=== PATIENT | female | born 1940 | race Caucasian/White ===

== ENCOUNTER 2016-11-28 00:17 | Inpatient (IN) | payer MEDICARE ==
[~2016-11-28] VITALS: Ht 157.5 cm; Wt 90.7 kg
[2016-11-28 00:59] LABS: BILIRUBIN,URINE NEGATIVE (NEG); GLUCOSE,URINE NEGATIVE (NEG); NITRITE,URINE NEGATIVE (NEG); PROTEIN,URINE NEGATIVE (NEG-TRACE); UROBILINOGEN,URINE 0.2 mg/dL (0.2 mg/dL)
[2016-11-28] MEDS ORDERED: ONDANSETRON PF 4 MG/2 ML VIAL. IV ONE (01:00)
[2016-11-28] MEDS ORDERED: FENTANYL PF 100 MCG/2 ML VIAL. IV PRN (01:00)
[2016-11-28] MEDS ORDERED: IV NORMAL SALINE 1000ML BAG 1,000 ML IV SCH (01:00)
[2016-11-28 01:02] LABS: BASO % 0 % (0-3); EOS % 0 % (0-3); HEMATOCRIT 44.1 % (36.0-47.0); HEMOGLOBIN 14.2 g/dL (12.0-15.5); LYMPH # 0.5 x10^3/uL (1.0-4.8); LYMPH % 4 % (24-48); MEAN CORPUSCULAR HEMOGLOBIN 30 pg (25-35); MEAN CORPUSCULAR HGB CONC 32 g/dL (31-37); MEAN CORPUSCULAR VOLUME 91 fL (79-100); MONO % 4 % (0-9); NEUT % 91 % (31-73); PLATELET COUNT 106 x10^3/uL (140-400); RED BLOOD COUNT 4.83 x10^6/uL (3.50-5.40); RED CELL DISTRIBUTION WIDTH 14.5 % (11.5-14.5); WHITE BLOOD COUNT 11.8 x10^3/uL (4.0-11.0)
--- NOTE | 2016-11-28 01:06 | ED.ADGEN ---
Past Medical History Past Medical History: CAD, Other Additional Past Medical Histor: ventricular premature stenosis, polio age 4 Past Surgical History: Other Additional Past Surgical Histo: 2 heart stents Alcohol Use: Rarely Drug Use: None Adult General Chief Complaint Chief Complaint: NAUSEA/VOMITING/DIARRHA HPI HPI Patient is a 76 year old woman, history of CAD, who presents to the emergency department with complaint of sudden onset of nausea, vomiting, diarrhea, and abdominal distention that began around 7:00 last night. Patient states she ate a small amount of casserole around 6 PM, denies any sick contacts or exposures, states that her states that he had "maybe a little bit of an upset stomach" after eating the same casserole, but has not experienced any vomiting or diarrhea. She denies any significant abdominal pain, complains of more distention, and pain with pressure on the abdomen. Denies any similar symptoms previously. No fevers or chills, no flank pain, no injuries, no urinary complaints. States that her stool began as loose and brown, and that she now is experiencing almost liquid stools, and that "my hemorrhoids have been irritated ", with a small amount of red blood. No dark stools, no blood in emesis. Patient has a history of colon cancer and her family, and receives endoscopy every 3 years, she is due for an ostomy this year, has not had any abnormalities noted with previous endoscopies. Review of Systems Review of Systems Constitutional: Denies fever or chills. [] Eyes: Denies change in visual acuity. [] HENT: Denies nasal congestion or sore throat. [] Respiratory: Denies cough or shortness of breath. [] Cardiovascular: Denies chest pain or edema. [] GI: Nausea, vomiting, diarrhea, abdominal distention. : Denies dysuria. [] Musculoskeletal: Denies back pain or joint pain. [] Integument: Denies rash. [] Neurologic: Denies headache, focal weakness or sensory changes. [] Endocrine: Denies polyuria or polydipsia. [] Lymphatic: Denies swollen glands. [] Psychiatric: Denies depression or anxiety. [] Current Medications Current Medications Current Medications Medications (Trade) Dose Ordered Sig/Lori Start Time Stop Time Status Last Admin Dose Admin Fentanyl Citrate 25 mcg 25 mcg PRN Q15MIN PRN 11/28/16 01:00 11/29/16 00:59 Info (Do NOT chart on this entry -- for MONITORING) 1 each PRN DAILY PRN 11/28/16 01:30 11/30/16 01:29 Iohexol (Omnipaque 300 Mg/ml) 75 ml 1X ONCE 11/28/16 01:30 11/28/16 01:31 DC 11/28/16 02:25 75 ML Ondansetron HCl (Zofran) 4 mg 1X ONCE 11/28/16 01:00 11/28/16 01:01 DC 11/28/16 01:00 4 MG Sodium Chloride (Iv Sodium Chloride 0.9% 1000ml Bag) 1,000 ml @ 1,000 mls/hr Q1H 11/28/16 01:00 11/28/16 01:59 DC 11/28/16 00:58 1,000 MLS/HR Allergies Allergies Allergies Coded Allergies Type Severity Reaction Last Updated Verified Sulfa (Sulfonamide Antibiotics) Allergy Unknown 11/28/16 Yes fexofenadine Allergy Unknown anxiety 11/28/16 Yes Uncoded Allergies Type Severity Reaction Last Updated Verified SULFA DRUGS Allergy Unknown rash 11/28/16 TRICYCLIC Allergy Unknown anxiety 11/28/16 Physical Exam Physical Exam Constitutional: Well developed, well nourished, no acute distress, non-toxic appearance. [] HENT: Normocephalic, atraumatic, bilateral external ears normal, oropharynx moist, no oral exudates, nose normal. [] Eyes: PERRLA, EOMI, conjunctiva normal, no discharge. [] Neck: Normal range of motion, no tenderness, supple, no stridor. [] Cardiovascular:Heart rate regular rhythm, no murmur, S1, S2, rubs or gallops. [] Lungs & Thorax: Bilateral breath sounds clear to auscultation, no wheezing, rhonchi, rales. No chest wall tenderness or crepitus. [] Abdomen: Bowel sounds diminished, soft, distended, patient with tenderness to palpation throughout the abdomen, no tympany, positive for mild voluntary guarding, no rebound or rigidity. [] Skin: Warm, dry, no erythema, no rash. [] Back: No tenderness, no CVA tenderness. [] Extremities: No tenderness, no cyanosis, no clubbing, ROM intact, no edema. [] Neurologic: Alert and oriented X 3, normal motor function, normal sensory function, no focal deficits noted. [] Psychologic: Affect normal, judgement normal, mood normal. [] Current Patient Data Vital Signs Vital Signs Date Time Temp Pulse Resp B/P Pulse Ox O2 Delivery O2 Flow Rate FiO2 11/28/16 00:27 98.3 84 20 162/75 98 Room Air 98.3 Lab Values Laboratory Tests Test 11/28/16 00:27 11/28/16 00:49 11/28/16 01:30 White Blood Count 11.8x10^3/uL (4.0-11.0) H Red Blood Count 4.83x10^6/uL (3.50-5.40) Hemoglobin 14.2g/dL (12.0-15.5) Hematocrit 44.1% (36.0-47.0) Mean Corpuscular Volume 91fL (79-100) Mean Corpuscular Hemoglobin 30pg (25-35) Mean Corpuscular Hemoglobin Concent 32g/dL (31-37) Red Cell Distribution Width 14.5% (11.5-14.5) Platelet Count 106x10^3/uL (140-400) L Neutrophils (%) (Auto) 91% (31-73) H Lymphocytes (%) (Auto) 4% (24-48) L Monocytes (%) (Auto) 4% (0-9) Eosinophils (%) (Auto) 0% (0-3) Basophils (%) (Auto) 0% (0-3) Neutrophils # (Auto) 10.8x10^3uL (1.8-7.7) H Lymphocytes # (Auto) 0.5x10^3/uL (1.0-4.8) L Monocytes # (Auto) 0.5x10^3/uL (0.0-1.1) Eosinophils # (Auto) 0.0x10^3/uL (0.0-0.7) Basophils # (Auto) 0.0x10^3/uL (0.0-0.2) Platelet Estimate Pending Sodium Level 143mmol/L (136-145) Potassium Level 4.4mmol/L (3.5-5.1) Chloride Level 105mmol/L (98-107) Carbon Dioxide Level 27mmol/L (21-32) Anion Gap 11 (6-14) Blood Urea Nitrogen 30mg/dL (7-20) H Creatinine 0.8mg/dL (0.6-1.0) Estimated GFR (Cockcroft-Gault) 69.7 BUN/Creatinine Ratio 38 (6-20) H Glucose Level 141mg/dL (70-99) H Calcium Level 9.6mg/dL (8.5-10.1) Total Bilirubin 0.5mg/dL (0.2-1.0) Aspartate Amino Transferase (AST) 29U/L (15-37) Alanine Aminotransferase (ALT) 21U/L (14-59) Alkaline Phosphatase 81U/L (46-116) Total Protein 6.7g/dL (6.4-8.2) Albumin 3.9g/dL (3.4-5.0) Albumin/Globulin Ratio 1.4 (1.0-1.7) Lipase 118U/L (73-393) Urine Collection Type Unknown Urine Color Yellow Urine Clarity Clear Urine pH 6.0 Urine Specific [place] 1.020 Urine Protein Negativemg/dL (NEG-TRACE) Urine Glucose (UA) Negativemg/dL (NEG) Urine Ketones (Stick) 15mg/dL (NEG) Urine Blood Negative (NEG) Urine Nitrite Negative (NEG) Urine Bilirubin Negative (NEG) Urine Urobilinogen Dipstick 0.2mg/dL (0.2 mg/dL) Urine Leukocyte Esterase Small (NEG) Urine RBC Occ/HPF (0-2) Urine WBC 5-10/HPF (0-4) Urine Squamous Epithelial Cells Mod/LPF Urine Bacteria 0/HPF (0-FEW) Urine Mucus Mod/LPF Influenza Type A Antigen Negative (NEGATIVE) Influenza Type B Antigen Negative (NEGATIVE) Laboratory Tests 11/28/16 00:27 Laboratory Tests 11/28/16 00:27 EKG EKG EC: Sinus rhythm, heart rate 82 bpm, left axis deviation, QTC of 431, ID of 158, QRS of 84, no ST elevations or depressions, mild baseline artifact noted , abnormal ECG, does not meet STEMI criteria. As interpreted by me. Radiology/Procedures Radiology/Procedures [] [facility] [address] [place] [address] IMAGING REPORT Signed PATIENT: IRMA MEDINA ACCOUNT: [id number] : 1940 LOCATION: ER AGE: 76 SEX: F EXAM STATUS: REG ER ORD. PHYSICIAN: MISAEL WILDER DO REASON: Abd pain/n/v/d PROCEDURE: ABD PELV W/ IV CONTRAST ONLY Examination: CT of the abdomen pelvis with IV contrast HISTORY History of nausea Vomiting, abdominal pain COMPARISON None available. TECHNIQUE Axial CT images of the abdomen is performed with IV contrast. Coronal sagittal reformats were performed. Exposure: One or more of the following dose reduction technique were utilized for this examination: 1. Automated exposure control. 2.Adjustment of MA and /or KV according to patient size. 3. Use of iterative reconstruction technique. Findings : Minimal bibasilar lung atelectasis. There is a small 4 millimeter pulmonary nodule identified in the left lower lobe of the lung. No evidence of free air identified in the abdomen. Multiple cysts identified in the liver with the largest measuring 4.7 centimeters in the right lobe likely cysts. The gallbladder is mildly distended. The visualized spleen, adrenals grossly appears unremarkable . The visualized pancreas grossly appears unremarkable . The stomach is mildly distended with fluid. There are multiple fluid distended/dilated small bowel loops identified in the in the proximal and mid small bowel region with collapsed small bowel loops identified in the right lower quadrant of the abdomen. A obvious transition point is difficult to visualize on this examination. Small amount of fluid identified in the colon throughout. Multiple colonic diverticula identified in the sigmoid colon region. The urinary bladder is moderately distended . The bilateral kidneys enhance symmetrically. Prominent appearing bilateral renal pelvis. Moderate aortic atherosclerosis. Moderate degenerative changes and in the visualized thoracolumbar spine. Coronary artery calcifications identified. Small fat and omentum containing umbilical hernia. The appendix is not clearly identified. IMPRESSION 1. Multiple dilated small bowel loops identified in the proximal and midportion with collapsed small bowel loops identified in the right lower quadrant of the abdomen, differential includes small bowel obstruction or ileus. 2. Multiple liver cysts. 3. Multiple colonic diverticula. Electronically signed by: Kodi Doyle (Nov 28, 2016 02:42:31) DICTATED and SIGNED BY: KODI DOYLE MD DATE: 11/28/16 0242 CC: MULUGETA FUNEZ; MISAEL WILDER DO ~ Course & Med Decision Making Course & Med Decision Making Pertinent Labs and Imaging studies reviewed. (See chart for details) Patient with recurrent nausea and vomiting, abdominal distention noted, with absence of bowel sounds. Concern for ileus versus small bowel obstruction and examination, patient is agreeable to receiving a CT of the abdomen and pelvis to further elucidate her symptoms. Laboratory studies revealed mild leukocytosis at 11.8, with no bandemia, elevated blood urea nitrogen at 30, and ketones at 15 in the urine, consistent with mild dehydration. CT abdomen and pelvis reveals evidence of dilated small bowel loops, with collapse further long , concerning again for ileus versus small bowel obstruction no transition point identified. Patient has had no further vomiting since administration of Zofran, states that her pain is well-controlled at this time. She is agreeable for admission to the hospital for nothing by mouth status, bowel rest, IV fluids, and evaluation by general surgery. Without any vomiting or nausea at this time, we'll hold off on placing NG tube. Findings as above discussed with Dr. Saez of internal medicine, bridge orders entered on her behalf for morning laboratory studies, consultation with Dr. Cerna of Gen. surgery, IV fluids and pain and antiemetics medications. Patient resting comfortably at time of transfer to the floor. Dragon Disclaimer Dragon Disclaimer This electronic medical record was generated, in whole or in part, using a voice recognition dictation system. Departure Impression: Primary Impression: Ileus Additional Impression: SBO (small bowel obstruction) Disposition: ADMITTED INPATIENT Admitting Physician: Aurora Saez Condition: IMPROVED Problem Qualifiers MISAEL WILDER DO Nov 28, 2016 01:06
[2016-11-28 01:09] LABS: BACTERIA,URINE 0 /HPF (0-FEW); RBC,URINE OCC /HPF (0-2); SQUAMOUS EPITHELIAL CELL,UR MOD /LPF
[2016-11-28 01:20] LABS: CALCIUM 9.6 mg/dL (8.5-10.1); CREATININE 0.8 mg/dL (0.6-1.0); GFR 69.7; POTASSIUM 4.4 mmol/L (3.5-5.1)
[2016-11-28 01:27] LABS: ALBUMIN 3.9 g/dL (3.4-5.0); ALBUMIN/GLOBULIN RATIO 1.4 (1.0-1.7); TOTAL BILIRUBIN 0.5 mg/dL (0.2-1.0); TOTAL PROTEIN 6.7 g/dL (6.4-8.2)
[2016-11-28] MEDS ORDERED: CONTRAST GIVEN MC PRN (01:30)
[2016-11-28] MEDS ORDERED: IOHEXOL 300 MG/ML 75 ML VIAL IV ONE (01:30)
[2016-11-28 01:57] LABS: OBC FLU VALID
--- NOTE | 2016-11-28 02:44 | RAD ---
Examination: CT of the abdomen pelvis with IV contrast HISTORY History of nausea Vomiting, abdominal pain COMPARISON None available. TECHNIQUE Axial CT images of the abdomen is performed with IV contrast. Coronal sagittal reformats were performed. Exposure: One or more of the following dose reduction technique were utilized for this examination: 1. Automated exposure control. 2.Adjustment of MA and /or KV according to patient size. 3. Use of iterative reconstruction technique. Findings : Minimal bibasilar lung atelectasis. There is a small 4 millimeter pulmonary nodule identified in the left lower lobe of the lung. No evidence of free air identified in the abdomen. Multiple cysts identified in the liver with the largest measuring 4.7 centimeters in the right lobe likely cysts. The gallbladder is mildly distended. The visualized spleen, adrenals grossly appears unremarkable . The visualized pancreas grossly appears unremarkable . The stomach is mildly distended with fluid. There are multiple fluid distended/dilated small bowel loops identified in the in the proximal and mid small bowel region with collapsed small bowel loops identified in the right lower quadrant of the abdomen. A obvious transition point is difficult to visualize on this examination. Small amount of fluid identified in the colon throughout. Multiple colonic diverticula identified in the sigmoid colon region. The urinary bladder is moderately distended . The bilateral kidneys enhance symmetrically. Prominent appearing bilateral renal pelvis. Moderate aortic atherosclerosis. Moderate degenerative changes and in the visualized thoracolumbar spine. Coronary artery calcifications identified. Small fat and omentum containing umbilical hernia. The appendix is not clearly identified. IMPRESSION 1. Multiple dilated small bowel loops identified in the proximal and midportion with collapsed small bowel loops identified in the right lower quadrant of the abdomen, differential includes small bowel obstruction or ileus. 2. Multiple liver cysts. 3. Multiple colonic diverticula. Electronically signed by: Kodi Doyle (Nov 28, 2016 02:42:31)
[2016-11-28] MEDS ORDERED: MORPHINE SULFATE 4 MG/ML DISP.SYRIN. IV PRN (03:15)
[2016-11-28 04:00] VITALS: BP 134/76
[2016-11-28] MEDS ORDERED: traZODone 50 MG TABLET. PO ONE (04:45)
[2016-11-28] MEDS: IV NORMAL SALINE 1000ML BAG 1,000 ML IV SCH ×2 (04:57→21:30)
[2016-11-28 05:24] LABS: TOXIC VACUOLATION SLIGHT
[2016-11-28 05:25] LABS: PLT ESTIMATE DECREASED (ADEQUATE)
--- NOTE | 2016-11-28 06:35 | EKG ---
[facility] [address] [place] [address] Test Date: 2016-11-28 Test Time: 00:55:54 Pat Name: IRMA MEDINA Department: Room: 438 1 Gender: F [employer] Builder: : 1940 Requested By: MISAEL WILDER Order Number: [id number] Reading MD: Alton Lagos Measurements Intervals [place] Rate: 82 P: 32 UT: 158 QRS: -18 QRSD: 84 T: 31 QT: 366 QTc: 431 Interpretive Statements SINUS RHYTHM LEFT ATRIAL ABNORMALITY LEFTWARD AXIS R-S TRANSITION ZONE IN V LEADS DISPLACED TO THE RIGHT Electronically Signed On 11-28-2016 14:56:12 SCISSORS GRINDER by Alton Lagos
[2016-11-28 07:15] VITALS: BP 125/66
[2016-11-28] MEDS ORDERED: AMLO2.5T2 PO (07:33)
[2016-11-28] MEDS ORDERED: ASPI-482 PO (07:33)
[2016-11-28] MEDS ORDERED: BISO5TAB2 PO (07:33)
[2016-11-28] MEDS ORDERED: estradiol VAG (07:33)
[2016-11-28] MEDS ORDERED: ACET500T68 PO (07:33)
[2016-11-28] MEDS ORDERED: CHOL10002 PO (07:33)
[2016-11-28] MEDS ORDERED: CRESTOR10 MG PO (07:33)
[2016-11-28] MEDS ORDERED: MULT-658 PO (07:33)
[2016-11-28] MEDS ORDERED: TRAZ100T12 PO (07:33)
[2016-11-28] MEDS ORDERED: HYDR-965 PO (07:33)
[2016-11-28] MEDS ORDERED: DIAZ5TAB PO (07:33)
--- NOTE | 2016-11-28 08:12 | PDOC1 ---
History and Physical Date of Admission Date of Admission DATE: 11/28/16 TIME: 08:05 Identification/Chief Complaint Chief Complaint diarrhea, vomiting Source Source: Chart review, Patient History of Present Illness History of Present Illness 76 y/o female admitted for acute onset of vomiting, diarrhea, maybe some abd cramps after eating dinner last night 7 pm, Denies recent travel or sick contacts, ate a casserole and 1 family member also had some diarrhea. 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 She gets cscope q3 yrs from GI at [place], hence known to have diverticulosis, Claims low grade temp last night 99.8 WBC 11, CT scan shows sbo partial vs ileus,Pt ahs never ahd prior similar episodes. Abd sx include hsyterrectomy distant past, rectocoele sx Pt has no pain now, no vomiting since arrival and actually requested for her trazadone pill last night and tolerated it fine. Eager to go home soon Aversed by the though of food currently Past Medical History Cardiovascular: HTN, Hyperlipidemia Psych: Other (insomnia) Past Surgical History Past Surgical History: Hysterectomy Family History Family History: No Significant Social History Smoke: No ALCOHOL: none Drugs: None Current Problem List Problem List Problems Medical Problems: (1) Ileus Status: Acute (2) SBO (small bowel obstruction) Status: Acute Problems: Current Medications Current Medications Current Medications Fentanyl Citrate 25 mcg 25 mcg PRN Q15MIN PRN IV PAIN GREATER THAN 3/10; Start 11/28/16 at 01:00; Stop 11/29/16 at 00:59 Sodium Chloride (Iv Sodium Chloride 0.9% 1000ml Bag) 1,000 ml @ 1,000 mls/hr Q1H IV Last administered on 11/28/16 00:58; Start 11/28/16 at 01:00; Stop at 01:59; Status DC Ondansetron HCl (Zofran) 4 mg 1X ONCE IV Last administered on 11/28/16 01:00 ; Start 11/28/16 at 01:00; Stop 11/28/16 at 01:01; Status DC Iohexol (Omnipaque 300 Mg/ml) 75 ml 1X ONCE IV Last administered on 11/28/16 02:25; Start 11/28/16 at 01:30; Stop 11/28/16 at 01:31; Status DC Info (Do NOT chart on this entry -- for MONITORING) 1 each PRN DAILY PRN MC SEE COMMENTS; Start 11/28/16 at 01:30; Stop 11/30/16 at 01:29 Ondansetron HCl (Zofran) 4 mg PRN Q8HRS PRN IV NAUSEA/VOMITING; Start 11/28/16 at 03:15; Stop 11/29/16 at 03:14 Morphine Sulfate 4 mg 4 mg PRN Q2HR PRN IV PAIN; Start 11/28/16 at 03:15; Stop 11/29/16 at 03:14 Sodium Chloride (Iv Sodium Chloride 0.9% 1000ml Bag) 1,000 ml @ 125 mls/hr Q8H IV Last administered on 11/28/16 04:57; Start 11/28/16 at 03:15; Stop at 03:14 Acetaminophen (Tylenol) 650 mg PRN Q4HRS PRN PO FEVER; Start 11/28/16 at 03:15 ; Stop 11/29/16 at 03:14 Trazodone HCl (Desyrel) 50 mg 1X ONCE PO Last administered on 11/28/16 04:50 ; Start 11/28/16 at 04:45; Stop 11/28/16 at 04:46; Status DC Active Scripts Active Reported Vitamin D (Cholecalciferol (Vitamin D3)) 1,000 Unit Tablet 1,000 Unit PO DAILY Valium (Diazepam) 5 Mg Tablet 5-10 Mg PO HS Acetaminophen 500 Mg Tablet 1 Tab PO Q6HRS Trazodone Hcl 100 Mg Tablet 1 Tab PO QHS Norvasc (Amlodipine Besylate) 2.5 Mg Tablet 1 Tab PO DAILY [place] 7.5-325 Tablet (Acetaminophen/Hydrocodone Bitart) 1 Each Tablet 1 Tab PO PRN Q6HRS PRN [estradiol] 1 Gm VAG WEEKLY PRN Crestor (Rosuvastatin Calcium) 10 Mg Tablet 1 Tab PO HS Centrum Silver Tablet (Multivits-Min/Fa/Lycopene/Lut) 1 Each Tablet 1 Each PO DAILY Bisoprolol Fumarate 5 Mg Tablet 1 Tab PO DAILY Aspir 81 (Aspirin) 81 Mg Tablet.dr 1 Tab PO DAILY Allergies Allergies: Coded Allergies: Sulfa (Sulfonamide Antibiotics) (Verified Allergy, Unknown, 11/28/16) fexofenadine (Verified Allergy, Unknown, anxiety, 11/28/16) Uncoded Allergies: SULFA DRUGS (Allergy, Unknown, rash, 11/28/16) TRICYCLIC (Allergy, Unknown, anxiety, 11/28/16) ROS General: No: Appetite, Chills, Fatigue, Malaise, Night Sweats, Other (fevers) PSYCHOLOGICAL ROS: No: Anxiety, Behavioral Disorder, Concentration difficultie , Decreased libido, Depression, Disorientation, Hallucinations, Hostility, Irritablity, Memory difficulties, Mood Swings, Obsessive thoughts, Other, Physical abuse, Sexual abuse, Sleep disturbances, Suicidal ideation Eyes: No Blurry vision, No Decreased vision, No Double vision, No Dry eyes, No Excessive tearing, No Eye Pain, No Itchy Eyes, No Loss of vision, No Other, No Photophobia, No Scotomata, No Uses contacts, No Uses glasses ALLERGY AND IMMUNOLOGY: No: Hives, Insect Bite Sensitivity, Itchy/Watery Eyes, Nasal Congestion, Other, Post Nasal Drip, Seasonal Allergies Breast: No New/Changing Breast Lumps, No Nipple changes, No Nipple discharge, No Other Respiratory: No: Cough, Hemoptysis, Orthopnea, Other, Pleuritic Pain, SOB with excertion, Shortness of breath, Sputum Changes, Stridor, Tachypnea, Wheezing Cardiovascular: No Chest Pain, No Edema, No Lt Headedness, No Orthopnea, No Other, No Palpitations, No Paroxysmal Noc. Dyspnea Gastrointestinal: Yes Abdominal Pain, Yes Diarrhea, Yes Nausea, Yes Vomiting Genitourinary: No , No , No , No , No , No , No , No Discharge, No Dysuria, No Flank Pain, No Frequency, No Hematuria, No Incontinence, No Other, No Pain, No Retention, No Urgency Musculoskeletal: No Gait Disturbance, No Joint Pain, No Joint Stiffness, No Joint Swelling, No Muscle Pain, No Muscular Weakness, No Other, No Pain In:, No Swelling In: Neurological: No Behavorial Changes, No Bowel/Bladder ControlChng, No Confusion , No Dizziness, No Gait Disturbance, No Headaches, No Impaired Coord/balance, No Memory Loss, No Numbness/Tingling, No Other, No Seizures, No Speech Problems , No Tremors, No Visual Changes, No Weakness Skin: No Acne, No Dry Skin, No Eczema, No Hair Changes, No Lumps, No Mole Changes, No Mottling, No Nail Changes, No Other, No Pruritus, No Rash, No Skin Lesion Changes Physical Exam General: Alert, Oriented X3, Cooperative, No acute distress HEENT: PERRLA, EOMI, Mucous membr. moist/pink Lungs: Clear to auscultation, Normal air movement Heart: S1S2, RRR, no thrills, no rubs, no gallops, no murmurs Cardiovascular: S1, S2 Breasts: Normal Rectal Exam: not examined PELVIC: Nml ext genitalia Extremities: No clubbing, No cyanosis, No edema, Normal pulses, No tenderness/ swelling Skin: No rashes, No breakdown, No significant lesion Neuro: Normal gait, Normal speech, Strength at 5/5 X4 ext, Normal tone, Sensation intact, Cranial nerves 3-12 NL, Reflexes 2+ Psych/Mental Status: Mental status NL, Mood NL Vitals Vitals Vital Signs Date Time Temp Pulse Resp B/P Pulse Ox O2 Delivery O2 Flow Rate FiO2 11/28/16 07:15 99.8 93 20 125/66 96 Room Air 99.8 Labs Labs Laboratory Tests Test 11/28/16 00:27 11/28/16 00:49 11/28/16 01:30 White Blood Count 11.8x10^3/uL (4.0-11.0) Red Blood Count 4.83x10^6/uL (3.50-5.40) Hemoglobin 14.2g/dL (12.0-15.5) Hematocrit 44.1% (36.0-47.0) Mean Corpuscular Volume 91fL (79-100) Mean Corpuscular Hemoglobin 30pg (25-35) Mean Corpuscular Hemoglobin Concent 32g/dL (31-37) Red Cell Distribution Width 14.5% (11.5-14.5) Platelet Count 106x10^3/uL (140-400) Neutrophils (%) (Auto) 91% (31-73) Lymphocytes (%) (Auto) 4% (24-48) Monocytes (%) (Auto) 4% (0-9) Eosinophils (%) (Auto) 0% (0-3) Basophils (%) (Auto) 0% (0-3) Neutrophils # (Auto) 10.8x10^3uL (1.8-7.7) Lymphocytes # (Auto) 0.5x10^3/uL (1.0-4.8) Monocytes # (Auto) 0.5x10^3/uL (0.0-1.1) Eosinophils # (Auto) 0.0x10^3/uL (0.0-0.7) Basophils # (Auto) 0.0x10^3/uL (0.0-0.2) Segmented Neutrophils % 84% (35-66) Band Neutrophils % 6% (0-9) Lymphocytes % 3% (24-48) Atypical Lymphocytes % (Manual) 3% (0-0) Monocytes % 4% (0-10) Toxic Vacuolation Slight Platelet Estimate Decreased (ADEQUATE) Giant Platelets Occ Sodium Level 143mmol/L (136-145) Potassium Level 4.4mmol/L (3.5-5.1) Chloride Level 105mmol/L (98-107) Carbon Dioxide Level 27mmol/L (21-32) Anion Gap 11 (6-14) Blood Urea Nitrogen 30mg/dL (7-20) Creatinine 0.8mg/dL (0.6-1.0) Estimated GFR (Cockcroft-Gault) 69.7 BUN/Creatinine Ratio 38 (6-20) Glucose Level 141mg/dL (70-99) Calcium Level 9.6mg/dL (8.5-10.1) Total Bilirubin 0.5mg/dL (0.2-1.0) Aspartate Amino Transf (AST/SGOT) 29U/L (15-37) Alanine Aminotransferase (ALT/SGPT) 21U/L (14-59) Alkaline Phosphatase 81U/L (46-116) Total Protein 6.7g/dL (6.4-8.2) Albumin 3.9g/dL (3.4-5.0) Albumin/Globulin Ratio 1.4 (1.0-1.7) Lipase 118U/L (73-393) Urine Collection Type Unknown Urine Color Yellow Urine Clarity Clear Urine pH 6.0 Urine Specific [place] 1.020 Urine Protein Negativemg/dL (NEG-TRACE) Urine Glucose (UA) Negativemg/dL (NEG) Urine Ketones (Stick) 15mg/dL (NEG) Urine Blood Negative (NEG) Urine Nitrite Negative (NEG) Urine Bilirubin Negative (NEG) Urine Urobilinogen Dipstick 0.2mg/dL (0.2 mg/dL) Urine Leukocyte Esterase Small (NEG) Urine RBC Occ/HPF (0-2) Urine WBC 5-10/HPF (0-4) Urine Squamous Epithelial Cells Mod/LPF Urine Bacteria 0/HPF (0-FEW) Urine Mucus Mod/LPF Influenza Type A Antigen Negative (NEGATIVE) Influenza Type B Antigen Negative (NEGATIVE) Laboratory Tests Test 11/28/16 00:27 11/28/16 00:49 11/28/16 01:30 White Blood Count 11.8x10^3/uL (4.0-11.0) Red Blood Count 4.83x10^6/uL (3.50-5.40) Hemoglobin 14.2g/dL (12.0-15.5) Hematocrit 44.1% (36.0-47.0) Mean Corpuscular Volume 91fL (79-100) Mean Corpuscular Hemoglobin 30pg (25-35) Mean Corpuscular Hemoglobin Concent 32g/dL (31-37) Red Cell Distribution Width 14.5% (11.5-14.5) Platelet Count 106x10^3/uL (140-400) Neutrophils (%) (Auto) 91% (31-73) Lymphocytes (%) (Auto) 4% (24-48) Monocytes (%) (Auto) 4% (0-9) Eosinophils (%) (Auto) 0% (0-3) Basophils (%) (Auto) 0% (0-3) Neutrophils # (Auto) 10.8x10^3uL (1.8-7.7) Lymphocytes # (Auto) 0.5x10^3/uL (1.0-4.8) Monocytes # (Auto) 0.5x10^3/uL (0.0-1.1) Eosinophils # (Auto) 0.0x10^3/uL (0.0-0.7) Basophils # (Auto) 0.0x10^3/uL (0.0-0.2) Segmented Neutrophils % 84% (35-66) Band Neutrophils % 6% (0-9) Lymphocytes % 3% (24-48) Atypical Lymphocytes % (Manual) 3% (0-0) Monocytes % 4% (0-10) Toxic Vacuolation Slight Platelet Estimate Decreased (ADEQUATE) Giant Platelets Occ Sodium Level 143mmol/L (136-145) Potassium Level 4.4mmol/L (3.5-5.1) Chloride Level 105mmol/L (98-107) Carbon Dioxide Level 27mmol/L (21-32) Anion Gap 11 (6-14) Blood Urea Nitrogen 30mg/dL (7-20) Creatinine 0.8mg/dL (0.6-1.0) Estimated GFR (Cockcroft-Gault) 69.7 BUN/Creatinine Ratio 38 (6-20) Glucose Level 141mg/dL (70-99) Calcium Level 9.6mg/dL (8.5-10.1) Total Bilirubin 0.5mg/dL (0.2-1.0) Aspartate Amino Transf (AST/SGOT) 29U/L (15-37) Alanine Aminotransferase (ALT/SGPT) 21U/L (14-59) Alkaline Phosphatase 81U/L (46-116) Total Protein 6.7g/dL (6.4-8.2) Albumin 3.9g/dL (3.4-5.0) Albumin/Globulin Ratio 1.4 (1.0-1.7) Lipase 118U/L (73-393) Urine Collection Type Unknown Urine Color Yellow Urine Clarity Clear Urine pH 6.0 Urine Specific [place] 1.020 Urine Protein Negativemg/dL (NEG-TRACE) Urine Glucose (UA) Negativemg/dL (NEG) Urine Ketones (Stick) 15mg/dL (NEG) Urine Blood Negative (NEG) Urine Nitrite Negative (NEG) Urine Bilirubin Negative (NEG) Urine Urobilinogen Dipstick 0.2mg/dL (0.2 mg/dL) Urine Leukocyte Esterase Small (NEG) Urine RBC Occ/HPF (0-2) Urine WBC 5-10/HPF (0-4) Urine Squamous Epithelial Cells Mod/LPF Urine Bacteria 0/HPF (0-FEW) Urine Mucus Mod/LPF Influenza Type A Antigen Negative (NEGATIVE) Influenza Type B Antigen Negative (NEGATIVE) VTE Prophylaxis Ordered VTE Prophylaxis Devices: Yes VTE Pharmacological Prophylaxi: Yes Assessment/Plan Assessment/Plan 1. Ileus vs partial SBO by CT 2. Diarrhea and vomiting 3. LEukocytosis 4. Anxiety 5. HTN, dyslipidemia - chronic stable 6. Insomnia PLAN: NPO ok for pills (pt insists on some of her meds) IVF GI and GS consults Monitor WBC Supprotive care Garfield jones's answered to her content re course and tx of ileus/partial sbo, signif time TRAVIS BOO MD Nov 28, 2016 08:12
[2016-11-28] MEDS ORDERED: HYDROCODONE/APAP 7.5/325MG TABLET. PO PRN (08:15)
[2016-11-28] MEDS ORDERED: ESTRADIOL 1 GM VAG PRN (08:15)
[2016-11-28] MEDS: ACETAMINOPHEN 325 MG TABLET. PO PRN ×2 (08:24→17:44)
[2016-11-28] MEDS: ONDANSETRON PF 4 MG/2 ML VIAL. IV PRN ×2 (08:24→17:44)
[2016-11-28] MEDS: AMLODIPINE BESYLATE 2.5 MG TABLET PO SCH (09:00)
[2016-11-28] MEDS: MULTIVITAMIN with MINERAL TABLET. PO SCH (09:00)
[2016-11-28] MEDS: ASPIRIN ENTERIC COATED 81 MG TABLET.DR. PO SCH (09:00)
[2016-11-28] MEDS: CHOLECALCIFEROL (VITAMIN D3) 1,000 UNIT TABLET PO SCH (09:00)
[2016-11-28] MEDS: ATENOLOL 50 MG TABLET PO SCH (09:00)
--- NOTE | 2016-11-28 09:27 | PDOC2 ---
ROXANNE EDEN [employer] OPERATOR 11/28/16 0927: CONSULT Date of Consult Date of Consult DATE: 11/28/16 TIME: 09:22 Reason for Consult Reason for Consult: sbo vs ileus Referring Physician Referring Physician: ER Identification/Chief Complaint Chief Complaint vomiting, diarrhea Source Source: Chart review, Patient History of Present Illness Reason for Visit: Admitted with acute onset of severe diarrhea, vomiting after dinner last night. She had made a casserole. No one else got sick, denies sick contacts. No more emesis, however continued nausea today, feels bloated Past Medical History Cardiovascular: HTN, Hyperlipidemia Psych: Other (insomnia) Past Surgical History Past Surgical History: Hysterectomy Family History Family History: No Significant Social History No ALCOHOL: none Drugs: None Current Problem List Problem List Problems Medical Problems: (1) Ileus Status: Acute (2) SBO (small bowel obstruction) Status: Acute Current Medications Current Medications Current Medications Fentanyl Citrate 25 mcg 25 mcg PRN Q15MIN PRN IV PAIN GREATER THAN 3/10; Start 11/28/16 at 01:00; Stop 11/29/16 at 00:59 Sodium Chloride (Iv Sodium Chloride 0.9% 1000ml Bag) 1,000 ml @ 1,000 mls/hr Q1H IV Last administered on 11/28/16 00:58; Start 11/28/16 at 01:00; Stop at 01:59; Status DC Ondansetron HCl (Zofran) 4 mg 1X ONCE IV Last administered on 11/28/16 01:00 ; Start 11/28/16 at 01:00; Stop 11/28/16 at 01:01; Status DC Iohexol (Omnipaque 300 Mg/ml) 75 ml 1X ONCE IV Last administered on 11/28/16 02:25; Start 11/28/16 at 01:30; Stop 11/28/16 at 01:31; Status DC Info (Do NOT chart on this entry -- for MONITORING) 1 each PRN DAILY PRN MC SEE COMMENTS; Start 11/28/16 at 01:30; Stop 11/30/16 at 01:29 Ondansetron HCl (Zofran) 4 mg PRN Q8HRS PRN IV NAUSEA/VOMITING Last administered on 11/28/16 08:24; Start 11/28/16 at 03:15; Stop 11/29/16 at 03:14 Morphine Sulfate 4 mg 4 mg PRN Q2HR PRN IV PAIN; Start 11/28/16 at 03:15; Stop 11/29/16 at 03:14 Sodium Chloride (Iv Sodium Chloride 0.9% 1000ml Bag) 1,000 ml @ 125 mls/hr Q8H IV Last administered on 11/28/16 04:57; Start 11/28/16 at 03:15; Stop at 03:14 Acetaminophen (Tylenol) 650 mg PRN Q4HRS PRN PO FEVER Last administered on 11/28 08:24; Start 11/28/16 at 03:15; Stop 11/29/16 at 03:14 Trazodone HCl (Desyrel) 50 mg 1X ONCE PO Last administered on 11/28/16 04:50 ; Start 11/28/16 at 04:45; Stop 11/28/16 at 04:46; Status DC Acetaminophen (Tylenol) 500 mg PRN Q6HRS PRN PO temp; Start 11/28/16 at 08:15 Amlodipine Besylate (Norvasc) 2.5 mg DAILY PO ; Start 11/28/16 at 09:00 Aspirin (Ecotrin) 81 mg DAILY PO ; Start 11/28/16 at 09:00 Vitamin D (Vitamin D3) 1,000 unit DAILY PO ; Start 11/28/16 at 09:00 Diazepam (Valium) 5 mg HS PO ; Start 11/28/16 at 21:00 Acetaminophen/ Hydrocodone Bitart ([place] 7.5/325) 1 tab PRN Q6HRS PRN PO PAIN ; Start 11/28/16 at 08:15 Trazodone HCl (Desyrel) 100 mg QHS PO ; Start 11/28/16 at 21:00 Atenolol (Tenormin) 50 mg DAILY PO ; Start 11/28/16 at 09:00 Multivitamins/ Calcium (Thera M Plus) 1 tab DAILY PO ; Start 11/28/16 at 09:00 Atorvastatin Calcium (Lipitor) 40 mg QHS PO ; Start 11/28/16 at 21:00 Non-Formulary Medication 1 gm WEEKLY PRN VAG SEE COMMENTS; Start 11/28/16 at 08 :15; Status UNV Active Scripts Active Reported Vitamin D (Cholecalciferol (Vitamin D3)) 1,000 Unit Tablet 1,000 Unit PO DAILY Valium (Diazepam) 5 Mg Tablet 5-10 Mg PO HS Acetaminophen 500 Mg Tablet 1 Tab PO Q6HRS Trazodone Hcl 100 Mg Tablet 1 Tab PO QHS Norvasc (Amlodipine Besylate) 2.5 Mg Tablet 1 Tab PO DAILY [place] 7.5-325 Tablet (Acetaminophen/Hydrocodone Bitart) 1 Each Tablet 1 Tab PO PRN Q6HRS PRN [estradiol] 1 Gm VAG WEEKLY PRN Crestor (Rosuvastatin Calcium) 10 Mg Tablet 1 Tab PO HS Centrum Silver Tablet (Multivits-Min/Fa/Lycopene/Lut) 1 Each Tablet 1 Each PO DAILY Bisoprolol Fumarate 5 Mg Tablet 1 Tab PO DAILY Aspir 81 (Aspirin) 81 Mg Tablet.dr 1 Tab PO DAILY Allergies Allergies: Coded Allergies: Tricyclic Compounds (Verified Allergy, Intermediate, Anxiety, 11/28/16) Sulfa (Sulfonamide Antibiotics) (Verified Allergy, Unknown, Rash, 11/28/16) fexofenadine (Verified Allergy, Unknown, anxiety, 11/28/16) ROS General: YES: Chills, No: Other (fevers) PSYCHOLOGICAL ROS: No: Anxiety, Depression Eyes: No Blurry vision, No Double vision HEENT: No: Heacaches, Sore Throat Hematological and Lymphatic: No: Bleeding Problems, Blood Clots Respiratory: No: Cough, Shortness of breath Cardiovascular: No Chest Pain, No Palpitations Gastrointestinal: Yes Other (see hpi) Genitourinary: No Dysuria, No Hematuria Musculoskeletal: No Joint Pain, No Muscle Pain Neurological: No Confusion, No Numbness/Tingling Skin: Yes Pruritus, Yes Rash Physical Exam General: Alert, Oriented X3, Cooperative, No acute distress HEENT: PERRLA, Mucous membr. moist/pink Lungs: Clear to auscultation, Normal air movement Heart: Regular rate, Normal S1, Normal S2 Abdomen: Soft, Other (ND, mild tenderness to abdomen ) Extremities: No clubbing, No cyanosis Skin: No rashes, No breakdown Neuro: Normal speech, Sensation intact Psych/Mental Status: Mental status NL, Mood NL MUSCULOSKELETAL: No deformity, No swelling Vitals VITALS Vital Signs Date Time Temp Pulse Resp B/P Pulse Ox O2 Delivery O2 Flow Rate FiO2 11/28/16 07:15 99.8 93 20 125/66 96 Room Air 99.8 Labs Labs Laboratory Tests Test 11/28/16 00:27 11/28/16 00:49 11/28/16 01:30 White Blood Count 11.8x10^3/uL (4.0-11.0) Red Blood Count 4.83x10^6/uL (3.50-5.40) Hemoglobin 14.2g/dL (12.0-15.5) Hematocrit 44.1% (36.0-47.0) Mean Corpuscular Volume 91fL (79-100) Mean Corpuscular Hemoglobin 30pg (25-35) Mean Corpuscular Hemoglobin Concent 32g/dL (31-37) Red Cell Distribution Width 14.5% (11.5-14.5) Platelet Count 106x10^3/uL (140-400) Neutrophils (%) (Auto) 91% (31-73) Lymphocytes (%) (Auto) 4% (24-48) Monocytes (%) (Auto) 4% (0-9) Eosinophils (%) (Auto) 0% (0-3) Basophils (%) (Auto) 0% (0-3) Neutrophils # (Auto) 10.8x10^3uL (1.8-7.7) Lymphocytes # (Auto) 0.5x10^3/uL (1.0-4.8) Monocytes # (Auto) 0.5x10^3/uL (0.0-1.1) Eosinophils # (Auto) 0.0x10^3/uL (0.0-0.7) Basophils # (Auto) 0.0x10^3/uL (0.0-0.2) Segmented Neutrophils % 84% (35-66) Band Neutrophils % 6% (0-9) Lymphocytes % 3% (24-48) Atypical Lymphocytes % (Manual) 3% (0-0) Monocytes % 4% (0-10) Toxic Vacuolation Slight Platelet Estimate Decreased (ADEQUATE) Giant Platelets Occ Sodium Level 143mmol/L (136-145) Potassium Level 4.4mmol/L (3.5-5.1) Chloride Level 105mmol/L (98-107) Carbon Dioxide Level 27mmol/L (21-32) Anion Gap 11 (6-14) Blood Urea Nitrogen 30mg/dL (7-20) Creatinine 0.8mg/dL (0.6-1.0) Estimated GFR (Cockcroft-Gault) 69.7 BUN/Creatinine Ratio 38 (6-20) Glucose Level 141mg/dL (70-99) Calcium Level 9.6mg/dL (8.5-10.1) Total Bilirubin 0.5mg/dL (0.2-1.0) Aspartate Amino Transf (AST/SGOT) 29U/L (15-37) Alanine Aminotransferase (ALT/SGPT) 21U/L (14-59) Alkaline Phosphatase 81U/L (46-116) Total Protein 6.7g/dL (6.4-8.2) Albumin 3.9g/dL (3.4-5.0) Albumin/Globulin Ratio 1.4 (1.0-1.7) Lipase 118U/L (73-393) Urine Collection Type Unknown Urine Color Yellow Urine Clarity Clear Urine pH 6.0 Urine Specific [place] 1.020 Urine Protein Negativemg/dL (NEG-TRACE) Urine Glucose (UA) Negativemg/dL (NEG) Urine Ketones (Stick) 15mg/dL (NEG) Urine Blood Negative (NEG) Urine Nitrite Negative (NEG) Urine Bilirubin Negative (NEG) Urine Urobilinogen Dipstick 0.2mg/dL (0.2 mg/dL) Urine Leukocyte Esterase Small (NEG) Urine RBC Occ/HPF (0-2) Urine WBC 5-10/HPF (0-4) Urine Squamous Epithelial Cells Mod/LPF Urine Bacteria 0/HPF (0-FEW) Urine Mucus Mod/LPF Influenza Type A Antigen Negative (NEGATIVE) Influenza Type B Antigen Negative (NEGATIVE) Laboratory Tests Test 11/28/16 00:27 11/28/16 00:49 11/28/16 01:30 White Blood Count 11.8x10^3/uL (4.0-11.0) Red Blood Count 4.83x10^6/uL (3.50-5.40) Hemoglobin 14.2g/dL (12.0-15.5) Hematocrit 44.1% (36.0-47.0) Mean Corpuscular Volume 91fL (79-100) Mean Corpuscular Hemoglobin 30pg (25-35) Mean Corpuscular Hemoglobin Concent 32g/dL (31-37) Red Cell Distribution Width 14.5% (11.5-14.5) Platelet Count 106x10^3/uL (140-400) Neutrophils (%) (Auto) 91% (31-73) Lymphocytes (%) (Auto) 4% (24-48) Monocytes (%) (Auto) 4% (0-9) Eosinophils (%) (Auto) 0% (0-3) Basophils (%) (Auto) 0% (0-3) Neutrophils # (Auto) 10.8x10^3uL (1.8-7.7) Lymphocytes # (Auto) 0.5x10^3/uL (1.0-4.8) Monocytes # (Auto) 0.5x10^3/uL (0.0-1.1) Eosinophils # (Auto) 0.0x10^3/uL (0.0-0.7) Basophils # (Auto) 0.0x10^3/uL (0.0-0.2) Segmented Neutrophils % 84% (35-66) Band Neutrophils % 6% (0-9) Lymphocytes % 3% (24-48) Atypical Lymphocytes % (Manual) 3% (0-0) Monocytes % 4% (0-10) Toxic Vacuolation Slight Platelet Estimate Decreased (ADEQUATE) Giant Platelets Occ Sodium Level 143mmol/L (136-145) Potassium Level 4.4mmol/L (3.5-5.1) Chloride Level 105mmol/L (98-107) Carbon Dioxide Level 27mmol/L (21-32) Anion Gap 11 (6-14) Blood Urea Nitrogen 30mg/dL (7-20) Creatinine 0.8mg/dL (0.6-1.0) Estimated GFR (Cockcroft-Gault) 69.7 BUN/Creatinine Ratio 38 (6-20) Glucose Level 141mg/dL (70-99) Calcium Level 9.6mg/dL (8.5-10.1) Total Bilirubin 0.5mg/dL (0.2-1.0) Aspartate Amino Transf (AST/SGOT) 29U/L (15-37) Alanine Aminotransferase (ALT/SGPT) 21U/L (14-59) Alkaline Phosphatase 81U/L (46-116) Total Protein 6.7g/dL (6.4-8.2) Albumin 3.9g/dL (3.4-5.0) Albumin/Globulin Ratio 1.4 (1.0-1.7) Lipase 118U/L (73-393) Urine Collection Type Unknown Urine Color Yellow Urine Clarity Clear Urine pH 6.0 Urine Specific [place] 1.020 Urine Protein Negativemg/dL (NEG-TRACE) Urine Glucose (UA) Negativemg/dL (NEG) Urine Ketones (Stick) 15mg/dL (NEG) Urine Blood Negative (NEG) Urine Nitrite Negative (NEG) Urine Bilirubin Negative (NEG) Urine Urobilinogen Dipstick 0.2mg/dL (0.2 mg/dL) Urine Leukocyte Esterase Small (NEG) Urine RBC Occ/HPF (0-2) Urine WBC 5-10/HPF (0-4) Urine Squamous Epithelial Cells Mod/LPF Urine Bacteria 0/HPF (0-FEW) Urine Mucus Mod/LPF Influenza Type A Antigen Negative (NEGATIVE) Influenza Type B Antigen Negative (NEGATIVE) Assessment/Plan Assessment/Plan sbo vs ileus, acute onset of diarrhea, vomiting, more c/w enteritis NPO, hydration, antiemetics will check plain films in AM ISAIAH CAVANAUGH MD 11/28/16 1414: CONSULT Allergies Allergies: Coded Allergies: Tricyclic Compounds (Verified Allergy, Intermediate, Anxiety, 11/28/16) Sulfa (Sulfonamide Antibiotics) (Verified Allergy, Unknown, Rash, 11/28/16) fexofenadine (Verified Allergy, Unknown, anxiety, 11/28/16) Assessment/Plan Assessment/Plan pt seen, interviewed and examined earlier today agree with above no acute surgical recs serial exams will follow Thanks for consult ROXANNE EDEN APRN Nov 28, 2016 09:27 ISAIAH CAVANAUGH MD Nov 28, 2016 14:14
[2016-11-28 11:16] VITALS: BP 113/59
[2016-11-28 15:06] VITALS: BP 124/64
[2016-11-28 19:00] VITALS: BP 110/59
[2016-11-28 20:17] LABS: CALCIUM 7.5 mg/dL (8.5-10.1); CREATININE 0.9 mg/dL (0.6-1.0); GFR 60.9; POTASSIUM 3.1 mmol/L (3.5-5.1)
[2016-11-28 20:48] LABS: PROCALCITONIN 0.64 ng/mL (0.00-0.10)
[2016-11-28] MEDS: DIAZEPAM 5 MG TABLET PO SCH (21:00)
[2016-11-28] MEDS: traZODone 100 MG TABLET. PO SCH (21:26)
[2016-11-28] MEDS: ATORVASTATIN CALCIUM 40 MG TABLET. PO SCH (21:26)
[2016-11-28 23:38] VITALS: BP 115/54
[2016-11-29] MEDS: ACETAMINOPHEN 500 MG TABLET PO PRN ×2 (03:16→20:41)
[2016-11-29 03:33] VITALS: BP 135/69
[2016-11-29 05:03] LABS: BASO % 0 % (0-3); EOS % 0 % (0-3); HEMATOCRIT 33.1 % (36.0-47.0); HEMOGLOBIN 10.7 g/dL (12.0-15.5); LYMPH # 0.7 x10^3/uL (1.0-4.8); LYMPH % 14 % (24-48); MEAN CORPUSCULAR HEMOGLOBIN 30 pg (25-35); MEAN CORPUSCULAR HGB CONC 32 g/dL (31-37); MEAN CORPUSCULAR VOLUME 93 fL (79-100); MONO % 11 % (0-9); NEUT % 74 % (31-73); PLATELET COUNT 76 x10^3/uL (140-400); RED BLOOD COUNT 3.57 x10^6/uL (3.50-5.40); RED CELL DISTRIBUTION WIDTH 14.9 % (11.5-14.5); WHITE BLOOD COUNT 4.9 x10^3/uL (4.0-11.0)
[2016-11-29 05:40] LABS: CALCIUM 7.3 mg/dL (8.5-10.1); CREATININE 0.8 mg/dL (0.6-1.0); GFR 69.7; POTASSIUM 3.1 mmol/L (3.5-5.1)
[2016-11-29 07:00] VITALS: BP 134/68
[2016-11-29] MEDS: IV NORMAL SALINE 1000ML BAG 1,000 ML IV SCH ×3 (08:00→23:38)
[2016-11-29] MEDS: AMLODIPINE BESYLATE 2.5 MG TABLET PO SCH (08:01)
[2016-11-29] MEDS: ATENOLOL 50 MG TABLET PO SCH (08:01)
[2016-11-29] MEDS: CHOLECALCIFEROL (VITAMIN D3) 1,000 UNIT TABLET PO SCH (08:02)
[2016-11-29] MEDS: MULTIVITAMIN with MINERAL TABLET. PO SCH (08:02)
[2016-11-29] MEDS: ASPIRIN ENTERIC COATED 81 MG TABLET.DR. PO SCH (08:02)
--- NOTE | 2016-11-29 09:04 | RAD ---
Indication: Diarrhea for 2 days. Time of exam 0848 hours. The heart size is normal. The lungs are clear. No free air is identified. No significant distention of the bowel is identified. No abdominal calcifications are identified. Impression: No acute feature detected.
--- NOTE | 2016-11-29 09:25 | PDOC ---
PROGRESS NOTES Chief Complaint Chief Complaint 1. Ileus vs partial SBO by CT, resoled in 24 hrs 2. Diarrhea and vomiting, persistent 3. LEukocytosis 4. Anxiety 5. HTN, dyslipidemia - chronic stable 6. Insomnia History of Present Illness History of Present Illness Watery diarrhea BUt no emesis, no fevers ABd benign Still aversed by thought of food Xray abd today normal Appreciate GS Stool sent yesterday PLAn: Await stool results COnt IVF MAy start GI soft - wants jello, she does not want reg diet for now Start Cipro and flagyl Dw pt Vitals Vitals Vital Signs Date Time Temp Pulse Resp B/P Pulse Ox O2 Delivery O2 Flow Rate FiO2 11/29/16 08:01 83 134/68 11/29/16 07:00 98.4 18 92 Room Air 98.4 Physical Exam General: Alert, Oriented X3, Cooperative, No acute distress Heart: Regular rate, Normal S1, Normal S2 Abdomen: Soft, Other (ND, mild tenderness to abdomen ) Extremities: No clubbing, No cyanosis Skin: No rashes, No breakdown Labs LABS Laboratory Tests Test 11/28/16 19:45 11/29/16 04:45 Sodium Level 144mmol/L (136-145) 145mmol/L (136-145) Potassium Level 3.1mmol/L (3.5-5.1) 3.1mmol/L (3.5-5.1) Chloride Level 111mmol/L (98-107) 112mmol/L (98-107) Carbon Dioxide Level 24mmol/L (21-32) 25mmol/L (21-32) Anion Gap 9 (6-14) 8 (6-14) Blood Urea Nitrogen 23mg/dL (7-20) 22mg/dL (7-20) Creatinine 0.9mg/dL (0.6-1.0) 0.8mg/dL (0.6-1.0) Estimated GFR (Cockcroft-Gault) 60.9 69.7 Glucose Level 117mg/dL (70-99) 96mg/dL (70-99) Lactic Acid Level 0.6mmol/L (0.4-2.0) Calcium Level 7.5mg/dL (8.5-10.1) 7.3mg/dL (8.5-10.1) Procalcitonin 0.64ng/mL (0.00-0.10) White Blood Count 4.9x10^3/uL (4.0-11.0) Red Blood Count 3.57x10^6/uL (3.50-5.40) Hemoglobin 10.7g/dL (12.0-15.5) Hematocrit 33.1% (36.0-47.0) Mean Corpuscular Volume 93fL (79-100) Mean Corpuscular Hemoglobin 30pg (25-35) Mean Corpuscular Hemoglobin Concent 32g/dL (31-37) Red Cell Distribution Width 14.9% (11.5-14.5) Platelet Count 76x10^3/uL (140-400) Neutrophils (%) (Auto) 74% (31-73) Lymphocytes (%) (Auto) 14% (24-48) Monocytes (%) (Auto) 11% (0-9) Eosinophils (%) (Auto) 0% (0-3) Basophils (%) (Auto) 0% (0-3) Neutrophils # (Auto) 3.6x10^3uL (1.8-7.7) Lymphocytes # (Auto) 0.7x10^3/uL (1.0-4.8) Monocytes # (Auto) 0.5x10^3/uL (0.0-1.1) Eosinophils # (Auto) 0.0x10^3/uL (0.0-0.7) Basophils # (Auto) 0.0x10^3/uL (0.0-0.2) Review of Systems Review of Systems loose stools cramps abd occasional, all else is neg Assessment and Plan Assessmemt and Plan See above plan (1) Ileus Status: Acute (2) SBO (small bowel obstruction) Status: Acute Problems: Comment Review of Relevant I have reviewed the following items stef (where applicable) has been applied. Labs Laboratory Tests Test 11/28/16 00:27 11/28/16 00:49 11/28/16 01:30 11/28/16 19:45 White Blood Count 11.8x10^3/uL (4.0-11.0) Red Blood Count 4.83x10^6/uL (3.50-5.40) Hemoglobin 14.2g/dL (12.0-15.5) Hematocrit 44.1% (36.0-47.0) Mean Corpuscular Volume 91fL (79-100) Mean Corpuscular Hemoglobin 30pg (25-35) Mean Corpuscular Hemoglobin Concent 32g/dL (31-37) Red Cell Distribution Width 14.5% (11.5-14.5) Platelet Count 106x10^3/uL (140-400) Neutrophils (%) (Auto) 91% (31-73) Lymphocytes (%) (Auto) 4% (24-48) Monocytes (%) (Auto) 4% (0-9) Eosinophils (%) (Auto) 0% (0-3) Basophils (%) (Auto) 0% (0-3) Neutrophils # (Auto) 10.8x10^3uL (1.8-7.7) Lymphocytes # (Auto) 0.5x10^3/uL (1.0-4.8) Monocytes # (Auto) 0.5x10^3/uL (0.0-1.1) Eosinophils # (Auto) 0.0x10^3/uL (0.0-0.7) Basophils # (Auto) 0.0x10^3/uL (0.0-0.2) Segmented Neutrophils % 84% (35-66) Band Neutrophils % 6% (0-9) Lymphocytes % 3% (24-48) Atypical Lymphocytes % (Manual) 3% (0-0) Monocytes % 4% (0-10) Toxic Vacuolation Slight Platelet Estimate Decreased (ADEQUATE) Giant Platelets Occ Sodium Level 143mmol/L (136-145) 144mmol/L (136-145) Potassium Level 4.4mmol/L (3.5-5.1) 3.1mmol/L (3.5-5.1) Chloride Level 105mmol/L (98-107) 111mmol/L (98-107) Carbon Dioxide Level 27mmol/L (21-32) 24mmol/L (21-32) Anion Gap 11 (6-14) 9 (6-14) Blood Urea Nitrogen 30mg/dL (7-20) 23mg/dL (7-20) Creatinine 0.8mg/dL (0.6-1.0) 0.9mg/dL (0.6-1.0) Estimated GFR (Cockcroft-Gault) 69.7 60.9 BUN/Creatinine Ratio 38 (6-20) Glucose Level 141mg/dL (70-99) 117mg/dL (70-99) Calcium Level 9.6mg/dL (8.5-10.1) 7.5mg/dL (8.5-10.1) Total Bilirubin 0.5mg/dL (0.2-1.0) Aspartate Amino Transf (AST/SGOT) 29U/L (15-37) Alanine Aminotransferase (ALT/SGPT) 21U/L (14-59) Alkaline Phosphatase 81U/L (46-116) Total Protein 6.7g/dL (6.4-8.2) Albumin 3.9g/dL (3.4-5.0) Albumin/Globulin Ratio 1.4 (1.0-1.7) Lipase 118U/L (73-393) Urine Collection Type Unknown Urine Color Yellow Urine Clarity Clear Urine pH 6.0 Urine Specific [place] 1.020 Urine Protein Negativemg/dL (NEG-TRACE) Urine Glucose (UA) Negativemg/dL (NEG) Urine Ketones (Stick) 15mg/dL (NEG) Urine Blood Negative (NEG) Urine Nitrite Negative (NEG) Urine Bilirubin Negative (NEG) Urine Urobilinogen Dipstick 0.2mg/dL (0.2 mg/dL) Urine Leukocyte Esterase Small (NEG) Urine RBC Occ/HPF (0-2) Urine WBC 5-10/HPF (0-4) Urine Squamous Epithelial Cells Mod/LPF Urine Bacteria 0/HPF (0-FEW) Urine Mucus Mod/LPF Influenza Type A Antigen Negative (NEGATIVE) Influenza Type B Antigen Negative (NEGATIVE) Lactic Acid Level 0.6mmol/L (0.4-2.0) Procalcitonin 0.64ng/mL (0.00-0.10) Test 11/29/16 04:45 White Blood Count 4.9x10^3/uL (4.0-11.0) Red Blood Count 3.57x10^6/uL (3.50-5.40) Hemoglobin 10.7g/dL (12.0-15.5) Hematocrit 33.1% (36.0-47.0) Mean Corpuscular Volume 93fL (79-100) Mean Corpuscular Hemoglobin 30pg (25-35) Mean Corpuscular Hemoglobin Concent 32g/dL (31-37) Red Cell Distribution Width 14.9% (11.5-14.5) Platelet Count 76x10^3/uL (140-400) Neutrophils (%) (Auto) 74% (31-73) Lymphocytes (%) (Auto) 14% (24-48) Monocytes (%) (Auto) 11% (0-9) Eosinophils (%) (Auto) 0% (0-3) Basophils (%) (Auto) 0% (0-3) Neutrophils # (Auto) 3.6x10^3uL (1.8-7.7) Lymphocytes # (Auto) 0.7x10^3/uL (1.0-4.8) Monocytes # (Auto) 0.5x10^3/uL (0.0-1.1) Eosinophils # (Auto) 0.0x10^3/uL (0.0-0.7) Basophils # (Auto) 0.0x10^3/uL (0.0-0.2) Sodium Level 145mmol/L (136-145) Potassium Level 3.1mmol/L (3.5-5.1) Chloride Level 112mmol/L (98-107) Carbon Dioxide Level 25mmol/L (21-32) Anion Gap 8 (6-14) Blood Urea Nitrogen 22mg/dL (7-20) Creatinine 0.8mg/dL (0.6-1.0) Estimated GFR (Cockcroft-Gault) 69.7 Glucose Level 96mg/dL (70-99) Calcium Level 7.3mg/dL (8.5-10.1) Laboratory Tests Test 11/28/16 19:45 11/29/16 04:45 Sodium Level 144mmol/L (136-145) 145mmol/L (136-145) Potassium Level 3.1mmol/L (3.5-5.1) 3.1mmol/L (3.5-5.1) Chloride Level 111mmol/L (98-107) 112mmol/L (98-107) Carbon Dioxide Level 24mmol/L (21-32) 25mmol/L (21-32) Anion Gap 9 (6-14) 8 (6-14) Blood Urea Nitrogen 23mg/dL (7-20) 22mg/dL (7-20) Creatinine 0.9mg/dL (0.6-1.0) 0.8mg/dL (0.6-1.0) Estimated GFR (Cockcroft-Gault) 60.9 69.7 Glucose Level 117mg/dL (70-99) 96mg/dL (70-99) Lactic Acid Level 0.6mmol/L (0.4-2.0) Calcium Level 7.5mg/dL (8.5-10.1) 7.3mg/dL (8.5-10.1) Procalcitonin 0.64ng/mL (0.00-0.10) White Blood Count 4.9x10^3/uL (4.0-11.0) Red Blood Count 3.57x10^6/uL (3.50-5.40) Hemoglobin 10.7g/dL (12.0-15.5) Hematocrit 33.1% (36.0-47.0) Mean Corpuscular Volume 93fL (79-100) Mean Corpuscular Hemoglobin 30pg (25-35) Mean Corpuscular Hemoglobin Concent 32g/dL (31-37) Red Cell Distribution Width 14.9% (11.5-14.5) Platelet Count 76x10^3/uL (140-400) Neutrophils (%) (Auto) 74% (31-73) Lymphocytes (%) (Auto) 14% (24-48) Monocytes (%) (Auto) 11% (0-9) Eosinophils (%) (Auto) 0% (0-3) Basophils (%) (Auto) 0% (0-3) Neutrophils # (Auto) 3.6x10^3uL (1.8-7.7) Lymphocytes # (Auto) 0.7x10^3/uL (1.0-4.8) Monocytes # (Auto) 0.5x10^3/uL (0.0-1.1) Eosinophils # (Auto) 0.0x10^3/uL (0.0-0.7) Basophils # (Auto) 0.0x10^3/uL (0.0-0.2) Medications Current Medications Fentanyl Citrate 25 mcg 25 mcg PRN Q15MIN PRN IV PAIN GREATER THAN 3/10; Start 11/28/16 at 01:00; Stop 11/29/16 at 00:59; Status DC Sodium Chloride (Iv Sodium Chloride 0.9% 1000ml Bag) 1,000 ml @ 1,000 mls/hr Q1H IV Last administered on 11/28/16 00:58; Start 11/28/16 at 01:00; Stop at 01:59; Status DC Ondansetron HCl (Zofran) 4 mg 1X ONCE IV Last administered on 11/28/16 01:00 ; Start 11/28/16 at 01:00; Stop 11/28/16 at 01:01; Status DC Iohexol (Omnipaque 300 Mg/ml) 75 ml 1X ONCE IV Last administered on 11/28/16 02:25; Start 11/28/16 at 01:30; Stop 11/28/16 at 01:31; Status DC Info (Do NOT chart on this entry -- for MONITORING) 1 each PRN DAILY PRN MC SEE COMMENTS; Start 11/28/16 at 01:30; Stop 11/30/16 at 01:29 Ondansetron HCl (Zofran) 4 mg PRN Q8HRS PRN IV NAUSEA/VOMITING Last administered on 11/28/16 17:44; Start 11/28/16 at 03:15; Stop 11/29/16 at 03:14 ; Status DC Morphine Sulfate 4 mg 4 mg PRN Q2HR PRN IV PAIN; Start 11/28/16 at 03:15; Stop 11/29/16 at 03:14; Status DC Sodium Chloride (Iv Sodium Chloride 0.9% 1000ml Bag) 1,000 ml @ 125 mls/hr Q8H IV Last administered on 11/29/16 08:00; Start 11/28/16 at 03:15; Stop at 03:14; Status DC Acetaminophen (Tylenol) 650 mg PRN Q4HRS PRN PO FEVER Last administered on 11/28 17:44; Start 11/28/16 at 03:15; Stop 11/29/16 at 03:14; Status DC Trazodone HCl (Desyrel) 50 mg 1X ONCE PO Last administered on 11/28/16 04:50 ; Start 11/28/16 at 04:45; Stop 11/28/16 at 04:46; Status DC Acetaminophen (Tylenol) 500 mg PRN Q6HRS PRN PO temp Last administered on 03:16; Start 11/28/16 at 08:15 Amlodipine Besylate (Norvasc) 2.5 mg DAILY PO Last administered on 11/29/16 08 :01; Start 11/28/16 at 09:00 Aspirin (Ecotrin) 81 mg DAILY PO ; Start 11/28/16 at 09:00 Vitamin D (Vitamin D3) 1,000 unit DAILY PO ; Start 11/28/16 at 09:00 Diazepam (Valium) 5 mg HS PO ; Start 11/28/16 at 21:00 Acetaminophen/ Hydrocodone Bitart (Lortab 7.5/325) 1 tab PRN Q6HRS PRN PO PAIN ; Start 11/28/16 at 08:15 Trazodone HCl (Desyrel) 100 mg QHS PO Last administered on 11/28/16 21:26; Start 11/28/16 at 21:00 Atenolol (Tenormin) 50 mg DAILY PO Last administered on 11/29/16 08:01; Start 11/28/16 at 09:00 Multivitamins/ Calcium (Thera M Plus) 1 tab DAILY PO ; Start 11/28/16 at 09:00 Atorvastatin Calcium (Lipitor) 40 mg QHS PO Last administered on 11/28/16 21: 26; Start 11/28/16 at 21:00 Non-Formulary Medication 1 gm WEEKLY PRN VAG SEE COMMENTS; Start 11/28/16 at 08 :15; Status UNV Estradiol (Estrace) 1 luis WEEKLYHS VG ; Start 12/05/16 at 21:00 Active Scripts Active Reported Vitamin D (Cholecalciferol (Vitamin D3)) 1,000 Unit Tablet 1,000 Unit PO DAILY Valium (Diazepam) 5 Mg Tablet 5-10 Mg PO HS Acetaminophen 500 Mg Tablet 1 Tab PO Q6HRS Trazodone Hcl 100 Mg Tablet 1 Tab PO QHS Norvasc (Amlodipine Besylate) 2.5 Mg Tablet 1 Tab PO DAILY [place] 7.5-325 Tablet (Acetaminophen/Hydrocodone Bitart) 1 Each Tablet 1 Tab PO PRN Q6HRS PRN [estradiol] 1 Gm VAG WEEKLY PRN Crestor (Rosuvastatin Calcium) 10 Mg Tablet 1 Tab PO HS Centrum Silver Tablet (Multivits-Min/Fa/Lycopene/Lut) 1 Each Tablet 1 Each PO DAILY Bisoprolol Fumarate 5 Mg Tablet 1 Tab PO DAILY Aspir 81 (Aspirin) 81 Mg Tablet. 1 Tab PO DAILY Vitals/I & O Vital Sign - Last 24 Hours 11/28/16 11/28/16 11/28/16 11/28/16 11:16 15:06 17:45 19:00 Temp 99.7 100.1 101.0 99.1 99.7 100.1 101.0 99.1 Pulse 86 85 81 Resp 18 18 18 B/P 113/59 124/64 110/59 Pulse Ox 97 96 93 O2 Delivery Room Air Room Air Room Air 11/28/16 11/28/16 11/29/16 11/29/16 20:00 23:38 03:33 07:00 Temp 99.3 99.5 98.4 99.3 99.5 98.4 Pulse 77 85 83 Resp 18 18 18 B/P 115/54 135/69 134/68 Pulse Ox 93 96 92 O2 Delivery Room Air Room Air Room Air Room Air 11/29/16 11/29/16 08:01 08:01 Pulse 83 83 B/P 134/68 134/68 Intake and Output 11/28/16 11/28/16 11/29/16 15:00 23:00 07:00 Intake Total 1274 ml 0 ml Balance 1274 ml 0 ml TRAVIS BOO MD Nov 29, 2016 09:24
[2016-11-29 11:00] VITALS: BP 137/70
[2016-11-29] MEDS: METRONIDAZOLE 500mg PREMIX 100 ML IV SCH ×2 (11:09→20:41)
[2016-11-29] MEDS: CIPROFLOXACIN 400MG PREMIX 200 ML IV SCH ×2 (11:09→20:40)
[2016-11-29 15:00] VITALS: BP 141/69
--- NOTE | 2016-11-29 15:09 | PDOC ---
SURGICAL PROGRESS NOTE Subjective Ms Torres is taking some po today. Denies pain. Sill having some loose stools. Vital Signs Vital Signs Date Time Temp Pulse Resp B/P Pulse Ox O2 Delivery O2 Flow Rate FiO2 11/29/16 15:00 98.1 73 18 141/69 94 Room Air 98.1 I&O Intake and Output 11/29/16 07:00 Intake Total 1274 ml Balance 1274 ml Intake Oral 0 ml IV Total 1274 ml # Voids 6 PATIENT HAS A PALOMO: No General: Alert, Oriented X3, Cooperative, No acute distress Abdomen: Soft, No tenderness Labs Laboratory Tests Test 11/28/16 00:27 11/28/16 00:49 11/28/16 01:30 11/28/16 19:45 White Blood Count 11.8x10^3/uL (4.0-11.0) Red Blood Count 4.83x10^6/uL (3.50-5.40) Hemoglobin 14.2g/dL (12.0-15.5) Hematocrit 44.1% (36.0-47.0) Mean Corpuscular Volume 91fL (79-100) Mean Corpuscular Hemoglobin 30pg (25-35) Mean Corpuscular Hemoglobin Concent 32g/dL (31-37) Red Cell Distribution Width 14.5% (11.5-14.5) Platelet Count 106x10^3/uL (140-400) Neutrophils (%) (Auto) 91% (31-73) Lymphocytes (%) (Auto) 4% (24-48) Monocytes (%) (Auto) 4% (0-9) Eosinophils (%) (Auto) 0% (0-3) Basophils (%) (Auto) 0% (0-3) Neutrophils # (Auto) 10.8x10^3uL (1.8-7.7) Lymphocytes # (Auto) 0.5x10^3/uL (1.0-4.8) Monocytes # (Auto) 0.5x10^3/uL (0.0-1.1) Eosinophils # (Auto) 0.0x10^3/uL (0.0-0.7) Basophils # (Auto) 0.0x10^3/uL (0.0-0.2) Segmented Neutrophils % 84% (35-66) Band Neutrophils % 6% (0-9) Lymphocytes % 3% (24-48) Atypical Lymphocytes % (Manual) 3% (0-0) Monocytes % 4% (0-10) Toxic Vacuolation Slight Platelet Estimate Decreased (ADEQUATE) Giant Platelets Occ Sodium Level 143mmol/L (136-145) 144mmol/L (136-145) Potassium Level 4.4mmol/L (3.5-5.1) 3.1mmol/L (3.5-5.1) Chloride Level 105mmol/L (98-107) 111mmol/L (98-107) Carbon Dioxide Level 27mmol/L (21-32) 24mmol/L (21-32) Anion Gap 11 (6-14) 9 (6-14) Blood Urea Nitrogen 30mg/dL (7-20) 23mg/dL (7-20) Creatinine 0.8mg/dL (0.6-1.0) 0.9mg/dL (0.6-1.0) Estimated GFR (Cockcroft-Gault) 69.7 60.9 BUN/Creatinine Ratio 38 (6-20) Glucose Level 141mg/dL (70-99) 117mg/dL (70-99) Calcium Level 9.6mg/dL (8.5-10.1) 7.5mg/dL (8.5-10.1) Total Bilirubin 0.5mg/dL (0.2-1.0) Aspartate Amino Transf (AST/SGOT) 29U/L (15-37) Alanine Aminotransferase (ALT/SGPT) 21U/L (14-59) Alkaline Phosphatase 81U/L (46-116) Total Protein 6.7g/dL (6.4-8.2) Albumin 3.9g/dL (3.4-5.0) Albumin/Globulin Ratio 1.4 (1.0-1.7) Lipase 118U/L (73-393) Urine Collection Type Unknown Urine Color Yellow Urine Clarity Clear Urine pH 6.0 Urine Specific [place] 1.020 Urine Protein Negativemg/dL (NEG-TRACE) Urine Glucose (UA) Negativemg/dL (NEG) Urine Ketones (Stick) 15mg/dL (NEG) Urine Blood Negative (NEG) Urine Nitrite Negative (NEG) Urine Bilirubin Negative (NEG) Urine Urobilinogen Dipstick 0.2mg/dL (0.2 mg/dL) Urine Leukocyte Esterase Small (NEG) Urine RBC Occ/HPF (0-2) Urine WBC 5-10/HPF (0-4) Urine Squamous Epithelial Cells Mod/LPF Urine Bacteria 0/HPF (0-FEW) Urine Mucus Mod/LPF Influenza Type A Antigen Negative (NEGATIVE) Influenza Type B Antigen Negative (NEGATIVE) Lactic Acid Level 0.6mmol/L (0.4-2.0) Procalcitonin 0.64ng/mL (0.00-0.10) Test 11/29/16 04:45 White Blood Count 4.9x10^3/uL (4.0-11.0) Red Blood Count 3.57x10^6/uL (3.50-5.40) Hemoglobin 10.7g/dL (12.0-15.5) Hematocrit 33.1% (36.0-47.0) Mean Corpuscular Volume 93fL (79-100) Mean Corpuscular Hemoglobin 30pg (25-35) Mean Corpuscular Hemoglobin Concent 32g/dL (31-37) Red Cell Distribution Width 14.9% (11.5-14.5) Platelet Count 76x10^3/uL (140-400) Neutrophils (%) (Auto) 74% (31-73) Lymphocytes (%) (Auto) 14% (24-48) Monocytes (%) (Auto) 11% (0-9) Eosinophils (%) (Auto) 0% (0-3) Basophils (%) (Auto) 0% (0-3) Neutrophils # (Auto) 3.6x10^3uL (1.8-7.7) Lymphocytes # (Auto) 0.7x10^3/uL (1.0-4.8) Monocytes # (Auto) 0.5x10^3/uL (0.0-1.1) Eosinophils # (Auto) 0.0x10^3/uL (0.0-0.7) Basophils # (Auto) 0.0x10^3/uL (0.0-0.2) Sodium Level 145mmol/L (136-145) Potassium Level 3.1mmol/L (3.5-5.1) Chloride Level 112mmol/L (98-107) Carbon Dioxide Level 25mmol/L (21-32) Anion Gap 8 (6-14) Blood Urea Nitrogen 22mg/dL (7-20) Creatinine 0.8mg/dL (0.6-1.0) Estimated GFR (Cockcroft-Gault) 69.7 Glucose Level 96mg/dL (70-99) Calcium Level 7.3mg/dL (8.5-10.1) Laboratory Tests Test 11/28/16 19:45 11/29/16 04:45 Sodium Level 144mmol/L (136-145) 145mmol/L (136-145) Potassium Level 3.1mmol/L (3.5-5.1) 3.1mmol/L (3.5-5.1) Chloride Level 111mmol/L (98-107) 112mmol/L (98-107) Carbon Dioxide Level 24mmol/L (21-32) 25mmol/L (21-32) Anion Gap 9 (6-14) 8 (6-14) Blood Urea Nitrogen 23mg/dL (7-20) 22mg/dL (7-20) Creatinine 0.9mg/dL (0.6-1.0) 0.8mg/dL (0.6-1.0) Estimated GFR (Cockcroft-Gault) 60.9 69.7 Glucose Level 117mg/dL (70-99) 96mg/dL (70-99) Lactic Acid Level 0.6mmol/L (0.4-2.0) Calcium Level 7.5mg/dL (8.5-10.1) 7.3mg/dL (8.5-10.1) Procalcitonin 0.64ng/mL (0.00-0.10) White Blood Count 4.9x10^3/uL (4.0-11.0) Red Blood Count 3.57x10^6/uL (3.50-5.40) Hemoglobin 10.7g/dL (12.0-15.5) Hematocrit 33.1% (36.0-47.0) Mean Corpuscular Volume 93fL (79-100) Mean Corpuscular Hemoglobin 30pg (25-35) Mean Corpuscular Hemoglobin Concent 32g/dL (31-37) Red Cell Distribution Width 14.9% (11.5-14.5) Platelet Count 76x10^3/uL (140-400) Neutrophils (%) (Auto) 74% (31-73) Lymphocytes (%) (Auto) 14% (24-48) Monocytes (%) (Auto) 11% (0-9) Eosinophils (%) (Auto) 0% (0-3) Basophils (%) (Auto) 0% (0-3) Neutrophils # (Auto) 3.6x10^3uL (1.8-7.7) Lymphocytes # (Auto) 0.7x10^3/uL (1.0-4.8) Monocytes # (Auto) 0.5x10^3/uL (0.0-1.1) Eosinophils # (Auto) 0.0x10^3/uL (0.0-0.7) Basophils # (Auto) 0.0x10^3/uL (0.0-0.2) I have reviewed the following plain abdominal films are unremarkable Problem List Problems Medical Problems: (1) Ileus Status: Acute (2) SBO (small bowel obstruction) Status: Acute Assessment/Plan ileus vs SBO, improved no surgical recs will sign off happy to see again if needed Dr Zamora available over weekend if needed Thank you Problems: ISAIAH CAVANAUGH MD Nov 29, 2016 15:09
[2016-11-29 19:17] VITALS: BP 143/72
[2016-11-29] MEDS: ATORVASTATIN CALCIUM 40 MG TABLET. PO SCH (20:43)
[2016-11-29] MEDS: traZODone 100 MG TABLET. PO SCH (20:43)
[2016-11-29 23:25] VITALS: BP 132/64
[2016-11-29] MEDS: DIAZEPAM 5 MG TABLET PO SCH (23:34)
[2016-11-30 03:22] VITALS: BP 139/61
[2016-11-30 07:00] VITALS: BP 144/68
[2016-11-30] MEDS: ASPIRIN ENTERIC COATED 81 MG TABLET.DR. PO SCH (08:09)
[2016-11-30] MEDS: MULTIVITAMIN with MINERAL TABLET. PO SCH (08:09)
[2016-11-30] MEDS: ATENOLOL 50 MG TABLET PO SCH (08:10)
[2016-11-30] MEDS: AMLODIPINE BESYLATE 2.5 MG TABLET PO SCH (08:11)
[2016-11-30] MEDS: METRONIDAZOLE 500mg PREMIX 100 ML IV SCH ×2 (08:12→22:46)
[2016-11-30] MEDS: CIPROFLOXACIN 400MG PREMIX 200 ML IV SCH ×2 (08:13→22:47)
[2016-11-30] MEDS: CHOLECALCIFEROL (VITAMIN D3) 1,000 UNIT TABLET PO SCH (08:16)
--- NOTE | 2016-11-30 08:47 | PDOC ---
PROGRESS NOTES Chief Complaint Chief Complaint A/P 1. Ileus vs partial SBO by CT, 2. Diarrhea, improving. 3. Leukocytosis 4. Anxiety 5. HTN, dyslipidemia - chronic stable 6. Insomnia Plan IVF clear liquid diet , advance as tolerated monitor BMP C diff negative. temp spike once continue current care stool studies for worsening diarrhea, hemodynamically stable. Vitals Vitals Vital Signs Date Time Temp Pulse Resp B/P Pulse Ox O2 Delivery O2 Flow Rate FiO2 11/30/16 08:11 72 144/68 11/30/16 07:00 99.5 18 95 Room Air 99.5 Physical Exam General: Alert, Oriented X3, Cooperative, No acute distress Heart: Regular rate, Normal S1, Normal S2 Lungs: Clear Abdomen: Soft, No tenderness Extremities: No clubbing, No cyanosis Skin: No rashes, No breakdown Assessment and Plan Assessmemt and Plan Problems Medical Problems: (1) Ileus Status: Acute (2) SBO (small bowel obstruction) Status: Acute Problems: Comment Review of Relevant I have reviewed the following items stef (where applicable) has been applied. Labs Laboratory Tests Test 11/28/16 19:45 11/28/16 20:00 11/29/16 04:45 Sodium Level 144mmol/L (136-145) 145mmol/L (136-145) Potassium Level 3.1mmol/L (3.5-5.1) 3.1mmol/L (3.5-5.1) Chloride Level 111mmol/L (98-107) 112mmol/L (98-107) Carbon Dioxide Level 24mmol/L (21-32) 25mmol/L (21-32) Anion Gap 9 (6-14) 8 (6-14) Blood Urea Nitrogen 23mg/dL (7-20) 22mg/dL (7-20) Creatinine 0.9mg/dL (0.6-1.0) 0.8mg/dL (0.6-1.0) Estimated GFR (Cockcroft-Gault) 60.9 69.7 Glucose Level 117mg/dL (70-99) 96mg/dL (70-99) Lactic Acid Level 0.6mmol/L (0.4-2.0) Calcium Level 7.5mg/dL (8.5-10.1) 7.3mg/dL (8.5-10.1) Procalcitonin 0.64ng/mL (0.00-0.10) Clostridium difficile Toxin (PCR) Negative (Negative) White Blood Count 4.9x10^3/uL (4.0-11.0) Red Blood Count 3.57x10^6/uL (3.50-5.40) Hemoglobin 10.7g/dL (12.0-15.5) Hematocrit 33.1% (36.0-47.0) Mean Corpuscular Volume 93fL (79-100) Mean Corpuscular Hemoglobin 30pg (25-35) Mean Corpuscular Hemoglobin Concent 32g/dL (31-37) Red Cell Distribution Width 14.9% (11.5-14.5) Platelet Count 76x10^3/uL (140-400) Neutrophils (%) (Auto) 74% (31-73) Lymphocytes (%) (Auto) 14% (24-48) Monocytes (%) (Auto) 11% (0-9) Eosinophils (%) (Auto) 0% (0-3) Basophils (%) (Auto) 0% (0-3) Neutrophils # (Auto) 3.6x10^3uL (1.8-7.7) Lymphocytes # (Auto) 0.7x10^3/uL (1.0-4.8) Monocytes # (Auto) 0.5x10^3/uL (0.0-1.1) Eosinophils # (Auto) 0.0x10^3/uL (0.0-0.7) Basophils # (Auto) 0.0x10^3/uL (0.0-0.2) Microbiology 11/28/16 Blood Culture - Preliminary, Resulted NO GROWTH AFTER 1 DAY 11/28/16 Urine Culture - Preliminary, Resulted 11/28/16 Urine Culture Result 1 (FABY) - Preliminary, Resulted Medications Current Medications Fentanyl Citrate 25 mcg 25 mcg PRN Q15MIN PRN IV PAIN GREATER THAN 3/10; Start 11/28/16 at 01:00; Stop 11/29/16 at 00:59; Status DC Sodium Chloride (Iv Sodium Chloride 0.9% 1000ml Bag) 1,000 ml @ 1,000 mls/hr Q1H IV Last administered on 11/28/16t 00:58; Start 11/28/16 at 01:00; Stop at 01:59; Status DC Ondansetron HCl (Zofran) 4 mg 1X ONCE IV Last administered on 11/28/16 01:00 ; Start 11/28/16 at 01:00; Stop 11/28/16 at 01:01; Status DC Iohexol (Omnipaque 300 Mg/ml) 75 ml 1X ONCE IV Last administered on 11/28/16 02:25; Start 11/28/16 at 01:30; Stop 11/28/16 at 01:31; Status DC Info (Do NOT chart on this entry -- for MONITORING) 1 each PRN DAILY PRN MC SEE COMMENTS; Start 11/28/16 at 01:30; Stop 11/30/16 at 01:29; Status DC Ondansetron HCl (Zofran) 4 mg PRN Q8HRS PRN IV NAUSEA/VOMITING Last administered on 11/28/16 17:44; Start 11/28/16 at 03:15; Stop 11/29/16 at 03:14 ; Status DC Morphine Sulfate 4 mg 4 mg PRN Q2HR PRN IV PAIN; Start 11/28/16 at 03:15; Stop 11/29/16 at 03:14; Status DC Sodium Chloride (Iv Sodium Chloride 0.9% 1000ml Bag) 1,000 ml @ 125 mls/hr Q8H IV Last administered on 11/29/16 08:00; Start 11/28/16 at 03:15; Stop at 03:14; Status DC Acetaminophen (Tylenol) 650 mg PRN Q4HRS PRN PO FEVER Last administered on 11/28 17:44; Start 11/28/16 at 03:15; Stop 11/29/16 at 03:14; Status DC Trazodone HCl (Desyrel) 50 mg 1X ONCE PO Last administered on 11/28/16 04:50 ; Start 11/28/16 at 04:45; Stop 11/28/16 at 04:46; Status DC Acetaminophen (Tylenol) 500 mg PRN Q6HRS PRN PO temp Last administered on 20:41; Start 11/28/16 at 08:15 Amlodipine Besylate (Norvasc) 2.5 mg DAILY PO Last administered on 11/30/16 08 :11; Start 11/28/16 at 09:00 Aspirin (Ecotrin) 81 mg DAILY PO Last administered on 11/30/16 08:09; Start at 09:00 Vitamin D (Vitamin D3) 1,000 unit DAILY PO Last administered on 11/30/16 08:16 ; Start 11/28/16 at 09:00 Diazepam (Valium) 5 mg HS PO Last administered on 11/29/16 23:34; Start at 21:00 Acetaminophen/ Hydrocodone Bitart (Lortab 7.5/325) 1 tab PRN Q6HRS PRN PO PAIN ; Start 11/28/16 at 08:15 Trazodone HCl (Desyrel) 100 mg QHS PO Last administered on 11/29/16 20:43; Start 11/28/16 at 21:00 Atenolol (Tenormin) 50 mg DAILY PO Last administered on 11/30/16 08:10; Start 11/28/16 at 09:00 Multivitamins/ Calcium (Thera M Plus) 1 tab DAILY PO Last administered on 08:09; Start 11/28/16 at 09:00 Atorvastatin Calcium (Lipitor) 40 mg QHS PO Last administered on 11/29/16 20: 43; Start 11/28/16 at 21:00 Non-Formulary Medication 1 gm WEEKLY PRN VAG SEE COMMENTS; Start 11/28/16 at 08 :15; Status UNV Estradiol 1 luis 1 luis WEEKLYHS VG ; Start 12/05/16 at 21:00 Sodium Chloride 1,000 ml @ 80 mls/hr [id number] IV Last administered on 23:38; Start 11/29/16 at 10:00 Metronidazole 100 ml @ 100 mls/hr Q12HR IV Last administered on 11/30/16 08: 12; Start 11/29/16 at 10:00 Ciprofloxacin Lactate (Cipro 400mg Premix) 200 ml @ 200 mls/hr Q12HR IV Last administered on 11/30/16 08:13; Start 11/29/16 at 10:00 Active Scripts Active Reported Vitamin D (Cholecalciferol (Vitamin D3)) 1,000 Unit Tablet 1,000 Unit PO DAILY Valium (Diazepam) 5 Mg Tablet 5-10 Mg PO HS Acetaminophen 500 Mg Tablet 1 Tab PO Q6HRS Trazodone Hcl 100 Mg Tablet 1 Tab PO QHS Norvasc (Amlodipine Besylate) 2.5 Mg Tablet 1 Tab PO DAILY [place] 7.5-325 Tablet (Acetaminophen/Hydrocodone Bitart) 1 Each Tablet 1 Tab PO PRN Q6HRS PRN [estradiol] 1 Gm VAG WEEKLY PRN Crestor (Rosuvastatin Calcium) 10 Mg Tablet 1 Tab PO HS Centrum Silver Tablet (Multivits-Min/Fa/Lycopene/Lut) 1 Each Tablet 1 Each PO DAILY Bisoprolol Fumarate 5 Mg Tablet 1 Tab PO DAILY Aspir 81 (Aspirin) 81 Mg Tablet. 1 Tab PO DAILY Vitals/I & O Vital Sign - Last 24 Hours 11/29/16 11/29/16 11/29/16 11/29/16 11:00 13:00 15:00 19:17 Temp 98.6 98.1 100.0 98.6 98.1 100.0 Pulse 78 73 78 Resp 18 18 18 B/P 137/70 141/69 143/72 Pulse Ox 94 94 95 O2 Delivery Room Air Room Air Room Air Room Air 11/29/16 11/29/16 11/30/16 11/30/16 20:00 23:25 03:22 07:00 Temp 98.2 97.9 99.5 98.2 97.9 99.5 Pulse 70 71 72 Resp 18 18 18 B/P 132/64 139/61 144/68 Pulse Ox 94 94 95 O2 Delivery Room Air Room Air Room Air Room Air 11/30/16 11/30/16 08:10 08:11 Pulse 72 72 B/P 144/68 144/68 Intake and Output 11/29/16 11/29/16 11/30/16 15:00 23:00 07:00 Intake Total 150 ml 100 ml 1410 ml Balance 150 ml 100 ml 1410 ml EELNO HAY MD Nov 30, 2016 08:47
[2016-11-30 11:00] VITALS: BP 142/75
[2016-11-30] MEDS: IV NORMAL SALINE 1000ML BAG 1,000 ML IV SCH ×2 (11:00→22:45)
[2016-11-30] MEDS: ACETAMINOPHEN 500 MG TABLET PO PRN (11:01)
[2016-11-30 15:00] VITALS: BP 132/67
[2016-11-30 19:20] VITALS: BP 143/70
[2016-11-30] MEDS: ATORVASTATIN CALCIUM 40 MG TABLET. PO SCH (22:46)
[2016-11-30] MEDS: traZODone 100 MG TABLET. PO SCH (22:47)
[2016-11-30 23:05] VITALS: BP 171/70
[2016-12-01] MEDS: DIAZEPAM 5 MG TABLET PO SCH (01:24)
[2016-12-01 08:09] VITALS: BP 105/69
[2016-12-01] MEDS: ASPIRIN ENTERIC COATED 81 MG TABLET.DR. PO SCH (08:31)
[2016-12-01] MEDS: CIPROFLOXACIN 400MG PREMIX 200 ML IV SCH (08:31)
[2016-12-01] MEDS: MULTIVITAMIN with MINERAL TABLET. PO SCH ×2 (08:31→08:37)
[2016-12-01] MEDS: METRONIDAZOLE 500mg PREMIX 100 ML IV SCH (08:31)
[2016-12-01] MEDS: CHOLECALCIFEROL (VITAMIN D3) 1,000 UNIT TABLET PO SCH (08:35)
[2016-12-01] MEDS: ATENOLOL 50 MG TABLET PO SCH (08:35)
[2016-12-01 11:42] VITALS: BP 136/64
[2016-12-01 11:46] VITALS: BP 136/64
[2016-12-01] MEDS: AMLODIPINE BESYLATE 2.5 MG TABLET PO SCH (11:46)
[2016-12-01] MEDS: IV NORMAL SALINE 1000ML BAG 1,000 ML IV SCH (12:00)
[2016-12-01] MEDS ORDERED: CIPR500T PO (13:01)
[2016-12-01] MEDS ORDERED: METR500T PO (13:01)
--- NOTE | 2016-12-01 13:06 | PDOC3 ---
Discharge Summary Visit Information Date of Admission: Nov 28, 2016 Date of Discharge: Dec 01, 2016 Admitting Diagnosis Comment: 1. Ileus vs partial SBO by CT, resoled in 24 hrs 2. Diarrhea and vomiting, persistent 3. LEukocytosis 4. Anxiety 5. HTN, dyslipidemia - chronic stable 6. Insomnia Final Diagnosis Problems Medical Problems: (1) Ileus Status: Acute (2) SBO (small bowel obstruction) Status: Acute (3) Viral gastroenteritis Status: Acute Brief Hospital Course Allergies Allergies Coded Allergies Type Severity Reaction Last Updated Verified Tricyclic Compounds Allergy Intermediate Anxiety 11/28/16 Yes Sulfa (Sulfonamide Antibiotics) Allergy Unknown Rash 11/28/16 Yes fexofenadine Allergy Unknown anxiety 11/28/16 Yes Vital Signs Vital Signs Date Time Temp Pulse Resp B/P Pulse Ox O2 Delivery O2 Flow Rate FiO2 12/01/16 11:46 60 136/64 12/01/16 11:42 98.6 20 95 Room Air 98.6 Brief Hospital Course Ms. Torres is a 76 old female who was transferred from [place] for ileus partial sbo, but upon arrival at [facility] had diarrhea a lot and felt better. C diff is neg, pt managed conservatively with GS. Started on Cipro and flagyl bec of the nature of her loose stools and mildly elevated wbc of 12. Better last BM was 2 days prior to dc., Afraid of getting constipated hence on colace at home bec of the nagulated anatomy of her colon as she was told and a bad experience with obstipation, NOt on narcs at home Stable to dc on PO cipro and flagyl Called to her pharmacy Dc 45 mins as pt went into foods and other details about food that can cause constipation Consults: GS Proc: none Dispo: home Dw [employer] Information Condition at Discharge: Improved, Stable Disposition/Orders: D/C to Home Scheduled Acetaminophen (Acetaminophen) 1 TAB PO Q6HRS (Reported) Amlodipine Besylate (Norvasc) 1 TAB PO DAILY (Reported) Aspirin (Aspir 81) 1 TAB PO DAILY (Reported) Bisoprolol Fumarate (Bisoprolol Fumarate) 1 TAB PO DAILY (Reported) Cholecalciferol (Vitamin D3) (Vitamin D) 1,000 UNIT PO DAILY (Reported) Diazepam (Valium) 5-10 MG PO HS (Reported) Multivits-Min/Fa/Lycopene/Lut (Centrum Silver Tablet) 1 EACH PO DAILY (Reported ) Rosuvastatin Calcium (Crestor) 1 TAB PO HS (Reported) Trazodone Hcl (Trazodone Hcl) 1 TAB PO QHS (Reported) Scheduled PRN ([estradiol]) 1 GM VAG WEEKLY PRN PRN SEE COMMENTS (Reported) Hydrocodone/Apap 7.5-325 ([place] 7.5-325 Tablet) 1 TAB PO PRN Q6HRS PRN PRN PAIN (Reported) TRAVIS BOO MD Dec 01, 2016 13:06
[2016-12-05] MEDS ORDERED: ESTRADIOL 0.01% VAGINAL CREAM 42.5GM TUBE. VG SCH (21:00)
== END 2016-12-01 14:45 | disposition home or self-care (01) | DRG 390 ==
LOC: ER 00:17 → 4 NORTH 02:48
PROVIDERS: ADMIT Internal Medicine; ATTEND Internal Medicine
DX: K56.7 Ileus, unspecified (principal); A08.4 Viral intestinal infection, unspecified; E78.5 Hyperlipidemia, unspecified; F41.9 Anxiety disorder, unspecified; G47.00 Insomnia, unspecified; I10 Essential (primary) hypertension; I25.10 Atherosclerotic heart disease of native coronary artery without angina pectoris; D72.829 Elevated white blood cell count, unspecified; K59.00 Constipation, unspecified; Z85.038 Personal history of other malignant neoplasm of large intestine; Z95.5 Presence of coronary angioplasty implant and graft; Z88.2 Allergy status to sulfonamides; Z88.8 Allergy status to other drugs, medicaments and biological substances; Z90.710 Acquired absence of both cervix and uterus
CPT/HCPCS: 36415; 74022; 74177; 80048; 80053; 81001; 83605; 83690; 84145; 85007; 85027; 87040; 87045; 87086; 87324; 87804; 93005; 96361; 96374; J0744; J2405; J3490; J7030; Q9967; 99285-25

== ENCOUNTER 2020-06-21 15:30 | Inpatient (IN) | payer MEDICARE ==
[~2020-06-21] VITALS: Ht 158.8 cm; Wt 82.1 kg
[~2020-06-21 15:30] MED LIST: ACET500T68 PO; AMLO2.5T2 PO; ASPI-482 PO; BISO5TAB8 PO; CHOL10002 PO; CIPR500T PO; CRESTOR10 MG PO; DIAZ5TAB PO; HYDR-3165 PO; METR500T PO; MULT-658 PO; TRAZ-123 PO; estradiol VAG
--- NOTE | 2020-06-21 16:22 | PHYS DOC ---
Past Medical History Past Medical History: Anxiety, CAD, High Cholesterol, Other Additional Past Medical Histor: ventricular premature stenosis, polio age 4 Past Surgical History: Other Additional Past Surgical Histo: 2 heart stents Smoking Status: Never Smoker Alcohol Use: Rarely Drug Use: None General Adult EDM: Chief Complaint: TREMORS HPI: HPI: Patient is an 80-year-old female with multiple medical problems who presents with a 3-day history of uncontrolled jerking of her arms and legs. She sleeps alone so she is not sure if it happens when she is sleeping. She states it happens every few seconds and is uncontrollable. It is gotten to the point now that it actually is really starting to interfere with her activities of daily living. She denies any lateralizing neurologic weakness. She has had no change in medicine or diet. She denies any headache. She has taken Valium at night in the past. [] Review of Systems: Review of Systems: Constitutional: Denies fever or chills. [] Eyes: Denies change in visual acuity. [] HENT: Denies nasal congestion or sore throat. [] Respiratory: Denies cough or shortness of breath. [] Cardiovascular: Denies chest pain or edema. [] GI: Denies abdominal pain, nausea, vomiting, bloody stools or diarrhea. [] : Denies dysuria. [] Musculoskeletal: Denies back pain or joint pain. [] Integument: Denies rash. [] Neurologic: Myoclonic jerking described in the HPI [] Endocrine: Denies polyuria or polydipsia. [] Lymphatic: Denies swollen glands. [] Psychiatric: Increased anxiety [] Heart Score: Risk Factors: Risk Factors: DM, Current or recent (<one month) smoker, HTN, HLP, family history of CAD, obesity. Risk Scores: Score 0 - 3: 2.5% MACE over next 6 weeks - Discharge Home Score 4 - 6: 20.3% MACE over next 6 weeks - Admit for Clinical Observation Score 7 - 10: 72.7% MACE over next 6 weeks - Early Invasive Strategies Current Medications: Current Medications Medications (Trade) Dose Ordered Sig/Lori Start Time Stop Time Status Last Admin Dose Admin Lorazepam (Ativan Inj) 1 mg 1X ONCE 06/21/20 16:15 06/21/20 16:16 DC Allergies: Allergies: Allergies Coded Allergies Type Severity Reaction Last Updated Verified Tricyclic Compounds Allergy Intermediate Anxiety 11/28/16 Yes Sulfa (Sulfonamide Antibiotics) Allergy Unknown Rash 11/28/16 Yes fexofenadine Allergy Unknown anxiety 11/28/16 Yes Physical Exam: PE: Constitutional: Well developed, well nourished, mild distress, non-toxic appearance. [] HENT: Normocephalic, atraumatic, bilateral external ears normal, oropharynx moist, no oral exudates, nose normal. [] Eyes: PERRLA, EOMI, conjunctiva normal, no discharge. [] Neck: Normal range of motion, no tenderness, supple, no stridor. [] Cardiovascular:Heart rate regular rhythm, no murmur [] Lungs & Thorax: Bilateral breath sounds clear to auscultation [] Abdomen: Bowel sounds normal, soft, no tenderness, no masses, no pulsatile masses. [] Skin: Warm, dry, no erythema, no rash. [] Back: No tenderness, no CVA tenderness. [] Extremities: No tenderness, no cyanosis, no clubbing, ROM intact, no edema. [] Neurologic: Myoclonic jerking both upper and lower extremities. [] Psychologic: Very anxious [] Current Patient Data: Vital Signs: Vital Signs Date Time Temp Pulse Resp B/P (MAP) Pulse Ox O2 Delivery O2 Flow Rate FiO2 06/21/20 15:35 98.5 67 16 182/85 (117) 97 Room Air 98.5 EKG: EKG: EKG: Normal sinus rhythm rate is [address]-T changes nothing appears ischemic [] Radiology/Procedures: Radiology/Procedures: [] Impression: REASON: uncontrolled muscle twitching X 4 DAYS PROCEDURE: CT HEAD WO CONTRAST CT scan of the head without contrast 06/21/2020 Clinical History: Uncontrolled muscle twitching for days. Technique: Unenhanced, contiguous, 5 mm axial sections were obtained through the head. One or more of the following individualized dose reduction techniques were utilized for this study: 1. Automated exposure control. 2. Adjustment of the mA and/or kV according to patient size. 3. Use of iterative reconstruction technique. Findings: No previous studies are available for comparison. There is generalized parenchymal atrophy. Areas of decreased attenuation are seen within the periventricular and subcortical white matter of both cerebral hemispheres consistent with areas of small vessel ischemic disease. No acute parenchymal abnormality is seen. No extra-axial fluid collection is noted. No skull fracture is seen. Impression: No acute intracranial abnormality is seen. Course & Med Decision Making: Course & Med Decision Making Pertinent Labs and Imaging studies reviewed. (See chart for details) ED course: Evaluation reveals an 80-year-old female with myoclonic jerking. I had Dr. Frazier evaluate the patient in the emergency department he recommended giving Ativan keeping her in the hospital overnight so we can do an EEG tomorrow. [] Dragon Disclaimer: Dragon Disclaimer: This electronic medical record was generated, in whole or in part, using a voice recognition dictation system. Departure Departure Impression: Primary Impression: Myoclonus Disposition: ADMITTED INPATIENT Admitting Physician: DAVID Condition: STABLE Referrals: MULUGETA FUNEZ (PCP) Justicifation of Admission Dx: Justifications for Admission: Justification of Admission Dx: Yes Comments: acute myoclonus DECLAN LOVELL DO Jun 21, 2020 16:22
[2020-06-21] MEDS ORDERED: IV NORMAL SALINE 1000ML BAG 1,000 ML IV SCH (16:48)
--- NOTE | 2020-06-21 16:54 | RAD ---
CT scan of the head without contrast 06/21/2020 Clinical History: Uncontrolled muscle twitching for days. Technique: Unenhanced, contiguous, 5 mm axial sections were obtained through the head. One or more of the following individualized dose reduction techniques were utilized for this study: 1. Automated exposure control. 2. Adjustment of the mA and/or kV according to patient size. 3. Use of iterative reconstruction technique. Findings: No previous studies are available for comparison. There is generalized parenchymal atrophy. Areas of decreased attenuation are seen within the periventricular and subcortical white matter of both cerebral hemispheres consistent with areas of small vessel ischemic disease. No acute parenchymal abnormality is seen. No extra-axial fluid collection is noted. No skull fracture is seen. Impression: No acute intracranial abnormality is seen. Electronically signed by: Thierry Hsieh MD (06/21/2020 4:50 PM) [id number]
--- NOTE | 2020-06-21 16:54 | PDOC2 ---
NEUROLOGY CONSULT Date of Service DOS: DATE: 06/21/20 TIME: 16:40 Reason for Consult Reason for Consult: Movement disorder Referring Physician Referring Physician: Dr. Crane Source Source: Chart review, Patient History of Present Illness History of Present Illness The patient is an 80-year-old ambidextrous female who 3 days ago started noticing jerking of her limbs and head. She has no warning. There is no alteration in consciousness. I saw her a year ago regarding memory loss. She had a Mini-Mental state score of 30/30 and a clock drawing task of 4/4, I felt she had mild cognitive impairment and no dementia. I asked her to follow-up in 3 months but she did not show. There is no history of stroke, seizure, or head injury. 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 Current Medications Current Medications Current Medications Lorazepam (Ativan Inj) 1 mg 1X ONCE IV ; Start 06/21/20 at 16:15; Stop 06/21/20 at 16:16; Status DC Active Scripts Active Flagyl (Metronidazole) 500 Mg Tablet 1 Tab PO BID Ciprofloxacin Hcl 500 Mg Tablet 1 Tab PO BID Reported Vitamin D (Cholecalciferol (Vitamin D3)) 1,000 Unit Tablet 1,000 Unit PO DAILY Valium (Diazepam) 5 Mg Tablet 5-10 Mg PO HS Acetaminophen 500 Mg Tablet 1 Tab PO Q6HRS Trazodone Hcl 100 Mg Tablet 1 Tab PO QHS Norvasc (Amlodipine Besylate) 2.5 Mg Tablet 1 Tab PO DAILY [place] 7.5-325 Tablet (Acetaminophen/Hydrocodone Bitart) 1 Each Tablet 1 Tab PO PRN Q6HRS PRN [estradiol] 1 Gm VAG WEEKLY PRN Crestor (Rosuvastatin Calcium) 10 Mg Tablet 1 Tab PO HS Centrum Silver Tablet (Multivits-Min/Fa/Lycopene/Lut) 1 Each Tablet 1 Each PO DAILY Bisoprolol Fumarate 5 Mg Tablet 1 Tab PO DAILY Aspir 81 (Aspirin) 81 Mg Tablet.dr 1 Tab PO DAILY Allergies Allergies: Coded Allergies: Tricyclic Compounds (Verified Allergy, Intermediate, Anxiety, 11/28/16) Sulfa (Sulfonamide Antibiotics) (Verified Allergy, Unknown, Rash, 11/28/16) fexofenadine (Verified Allergy, Unknown, anxiety, 11/28/16) ROS Review of System Negative for fever, chills, weight loss, shortness of breath, chest pain, indigestion, hematochezia, melena, and dysuria. Full 14-point review of systems is negative. Physical Exam Physical Examination General: Well-developed, well-nourished white female in no acute distress HEENT: Normocephalic andatraumatic. Tympanic membranes clear.Temporal arteriespulsatile and nontender.Fundoscopic exam unremarkable Neck: Supple without bruit, no meningismus Musculoskeletal: Stability:see neurologic. Gait exam:see neurologic. Tone:see neurologic. Strength:see neurologic. Neurological: Mental Status: orientation, memory, attention span/concentration, language, fund of knowledge: Hard of hearing, knows date, location, recounts her history well, also remember seeing me a year ago. Cranial Nerves:Pupils equal and reactive to light, extraocular movements areintact, visual harris are full to confrontation. Facial sensation is normal. There is no facial asymmetry. Vestibulo-ocular reflex is intact. Palate elevates and tongue protrudes in midline. All other cranial related problems are negative except as mentioned before.Reflexes:2+ and symmetric with flexor plantar responses. Motor:5/5 strength with normal tone and bulk. She has whole-body myoclonic jerks without altered consciousness. Coordination:Finger-nose finger and [id number] testing are normal. Rapid alternating movements and fine finger movements are intact. Gait:Normal, including tandem. Sensory:Normal pinprick, vibration, light touch, proprioception. Vitals VITALS Vital Signs Date Time Temp Pulse Resp B/P (MAP) Pulse Ox O2 Delivery O2 Flow Rate FiO2 06/21/20 15:35 98.5 67 16 182/85 (117) 97 Room Air 98.5 Assessment/Plan Assessment/Plan Impression: New onset myoclonus, note that she is on Valium sedation for sleep, but she denies missing any doses so this is not withdrawal. She does have a history of mild cognitive impairment, I do not think she is demented, but several dementing illnesses can cause myoclonus including Creutzfeldt-Bertin. Metabolic abnormalities are possible, all labs are pending. Intracranial structural abnormality is still possible but less likely given the nonfocal exam. Recommendations: Observe in hospital Scheduled clonazepam, side effects discussed Electroencephalogram tomorrow Additional studies including MRI, lumbar puncture, Creutzfeldt Ángel testing, all depending on results of initial work-up and treatment. Thank you for letting me help with the patient's care. DAVIDE DEAL MD Jun 21, 2020 16:54
[2020-06-21] MEDS ORDERED: ONDANSETRON PF 4 MG/2 ML VIAL. IV PRN (17:00)
[2020-06-21 17:25] LABS: BASO # 0.1 x10^3/uL (0.0-0.2); BASO % 1 % (0-3); EOS # 0.1 x10^3/uL (0.0-0.7); EOS % 1 % (0-3); HEMATOCRIT 43.4 % (36.0-47.0); HEMOGLOBIN 14.4 g/dL (12.0-15.5); LYMPH # 2.2 x10^3/uL (1.0-4.8); LYMPH % 27 % (24-48); MEAN CORPUSCULAR HEMOGLOBIN 30 pg (25-35); MEAN CORPUSCULAR HGB CONC 33 g/dL (31-37); MEAN CORPUSCULAR VOLUME 90 fL (79-100); MONO # 0.9 x10^3/uL (0.0-1.1); MONO % 11 % (0-9); NEUT % 61 % (31-73); PLATELET COUNT 121 x10^3/uL (140-400); RED BLOOD COUNT 4.85 x10^6/uL (3.50-5.40); RED CELL DISTRIBUTION WIDTH 14.9 % (11.5-14.5); WHITE BLOOD COUNT 8.3 x10^3/uL (4.0-11.0)
[2020-06-21 17:51] LABS: ALBUMIN 3.5 g/dL (3.4-5.0); CALCIUM 8.7 mg/dL (8.5-10.1); GFR 53.3; MAGNESIUM 2.5 mg/dL (1.8-2.4); POTASSIUM 3.3 mmol/L (3.5-5.1); TOTAL BILIRUBIN 0.2 mg/dL (0.2-1.0)
[2020-06-21 17:55] LABS: PLT ESTIMATE ADEQUATE (ADEQUATE)
--- NOTE | 2020-06-21 18:28 | EKG ---
[facility] [address] [place] [address] Test Date: 2020-06-21 Test Time: 16:51:22 Pat Name: IRMA MEDINA Department: Room: Gender: F Devops: : 1940 Requested By: DECLAN LOVELL Order Number: [id number] Reading MD: Measurements Intervals [place] Rate: 68 P: 29 ND: 188 QRS: -18 QRSD: 86 T: 26 QT: 392 QTc: 417 Interpretive Statements SINUS RHYTHM ATRIAL PREMATURE COMPLEX(ES) LEFTWARD AXIS R-S TRANSITION ZONE IN V LEADS DISPLACED TO THE LEFT LEFT VENTRICULAR HYPERTROPHY ABNORMAL ECG RI6.02 No previous ECG available for comparison
[2020-06-21 20:15] VITALS: BP 128/78
[2020-06-21] MEDS: clonazePAM 0.5 MG TABLET PO SCH (21:04)
[2020-06-21] MEDS: traZODone 100 MG TABLET. PO SCH (22:04)
[2020-06-21] MEDS: ATORVASTATIN CALCIUM 40 MG TABLET. PO SCH (22:05)
[2020-06-21] MEDS: ACETAMINOPHEN 500 MG TABLET PO PRN (22:29)
[2020-06-21 23:00] VITALS: BP 118/62
[2020-06-22 02:38] LABS: BILIRUBIN,URINE NEGATIVE (NEG); CLARITY,URINE CLEAR; COLOR,URINE YELLOW; NITRITE,URINE NEGATIVE (NEG); PROTEIN,URINE NEGATIVE (NEG-TRACE); UROBILINOGEN,URINE 0.2 mg/dL (0.2 mg/dL)
[2020-06-22 02:44] LABS: BACTERIA,URINE 0 /HPF (0-FEW); RBC,URINE OCC /HPF (0-2); SQUAMOUS EPITHELIAL CELL,UR MOD /LPF; WBC,URINE OCC /HPF (0-4)
[2020-06-22 02:45] LABS: BARBITURATES NEG (NEG); BENZODIAZEPINES POS (NEG); CANNABINOIDS NEG (NEG); COCAINE NEG (NEG); METHADONE NEG (NEG); OPIATES NEG (NEG); PHENCYCLIDINE NEG (NEG)
[2020-06-22 02:46] LABS: AMPHETAMINE/METHAMPHETAMINE NEG (NEG)
[2020-06-22 07:15] VITALS: BP 152/62
[2020-06-22] MEDS ORDERED: POTASSIUM CHLORIDE 20 MEQ TABLET.ER. PO ONE (08:00)
--- NOTE | 2020-06-22 08:02 | PDOC1 ---
History and Physical Date of Admission Date of Admission DATE: 06/22/20 TIME: 07:59 Identification/Chief Complaint Chief Complaint Shaking Source Source: Caregiver, Patient History of Present Illness History of Present Illness Ms Torres is an 80-year-old female with PMHx Anxiety, CAD s/p TAYLOR x2, High Cholesterol, h/o polio, and ventricular premature stenosis who presents with a 3-day history of uncontrolled jerking of her arms and legs. She sleeps alone so she is not sure if it happens when she is sleeping. She states it happens every few seconds and is uncontrollable. It is gotten to the point now that it actual ly is really starting to interfere with her activities of daily living. She still drives walks and does not have any tremors when she is moving only when she is sitting or laying down. She denies any lateralizing neurologic weakness. She has had no change in medicine or diet. She denies any headache. She has taken Valium at night in the past. EKG sinus rhythm rate of [address] segment changes no T wave inversions. 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) Psych: Other (Insomnia) Musculoskeletal: Osteoarthritis Rheumatologic: Fibromyalgia ENT: Other (Hearing loss) Endocrine: Osteoporosis, Other (Thyroid lump) Past Surgical History Past Surgical History: Hysterectomy, Other (Cystocele, rectocele, arthroscopic knee, coronary stent) Family History Family History: No Significant Social History Smoke: No ALCOHOL: none Drugs: None Current Problem List Problem List Problems Medical Problems: (1) Myoclonus Status: Acute Current Medications Current Medications Current Medications Lorazepam (Ativan Inj) 1 mg 1X ONCE IV Last administered on 06/21/20at 16:58; Start 06/21/20 at 16:15; Stop 06/21/20 at 16:16; Status DC Ondansetron HCl (Zofran) 4 mg PRN Q8HRS PRN IV NAUSEA/VOMITING; Start 06/21/20 at 17:00; Stop 06/22/20 at 16:59 Sodium Chloride 1,000 ml @ 125 mls/hr Q8H IV Last administered on 06/21/20at 17:16; Start 06/21/20 at 16:48; Stop 06/22/20 at 16:47 Clonazepam (KlonoPIN) 0.5 mg TID PO Last administered on 06/21/20at 21:04; Start 06/21/20 at 21:00 Lorazepam (Ativan Inj) 1 mg PRN Q2HRS PRN IV TREMORS; Start 06/21/20 at 17:30 Acetaminophen (Tylenol) 1,000 mg PRN Q6HRS PRN PO MILD PAIN / TEMP > 100.3'F Last administered on 06/21/20at 22:29; Start 06/21/20 at 22:30 Aspirin (Ecotrin) 81 mg DAILYWBKFT PO ; Start 06/22/20 at 08:00 Trazodone HCl (Desyrel) 100 mg QHS PO Last administered on 06/21/20at 22:04; Start 06/21/20 at 21:30 Amlodipine Besylate (Norvasc) 2.5 mg DAILY PO ; Start 06/22/20 at 09:00 Atenolol (Tenormin) 50 mg DAILY PO ; Start 06/22/20 at 09:00 Atorvastatin Calcium (Lipitor) 40 mg HS PO Last administered on 06/21/20at 22:05; Start 06/21/20 at 21:45 Active Scripts Active Reported Valium (Diazepam) 5 Mg Tablet 5-10 Mg PO HS Acetaminophen 500 Mg Tablet 2 Tab PO Q6HRS PRN Trazodone Hcl 100 Mg Tablet 1 Tab PO QHS Norvasc (Amlodipine Besylate) 2.5 Mg Tablet 1 Tab PO DAILY Crestor (Rosuvastatin Calcium) 10 Mg Tablet 1 Tab PO HS Bisoprolol Fumarate 5 Mg Tablet 1 Tab PO DAILY Aspir 81 (Aspirin) 81 Mg Tablet.dr 1 Tab PO DAILY Allergies Allergies: Coded Allergies: Tricyclic Compounds (Verified Allergy, Intermediate, Anxiety, 11/28/16) Sulfa (Sulfonamide Antibiotics) (Verified Allergy, Unknown, Rash, 11/28/16) fexofenadine (Verified Allergy, Unknown, anxiety, 11/28/16) ROS General: YES: Fatigue, Malaise; No: Chills, Night Sweats, Appetite, Other PSYCHOLOGICAL ROS: YES: Anxiety, Disorientation, Memory difficulties; No: Behavioral Disorder, Concentration difficultie, Decreased libido, Depression, Hallucinations, Hostility, Irritablity, Mood Swings, Obsessive thoughts, Physical abuse, Sexual abuse, Sleep disturbances, Suicidal ideation, Other Eyes: No Blurry vision, No Decreased vision, No Double vision, No Dry eyes, No Excessive tearing, No Eye Pain, No Itchy Eyes, No Loss of vision, No Photophobia, No Scotomata, No Uses contacts, No Uses glasses, No Other HEENT: No: Heacaches, Visual Changes, Hearing change, Nasal congestion, Nasal discharge, Oral lesions, Sinus pain, Sore Throat, Epistaxis, Sneezing, Snoring, Tinnitus, Vertigo, Vocal changes, Other ALLERGY AND IMMUNOLOGY: No: Hives, Insect Bite Sensitivity, Itchy/Watery Eyes, Nasal Congestion, Post Nasal Drip, Seasonal Allergies, Other Hematological and Lymphatic: No: Bleeding Problems, Blood Clots, Blood Transfusions, Brusing, Night Sweats, Pallor, Swollen Lymph Nodes, Other ENDOCRINE: No: Breast Changes, Galactorrhea, Hair Pattern Changes, Hot Flashes, Malaise/lethargy, Mood Swings, Palpitations, Polydipsia/polyuria, Skin Changes, Temperature Intolerance, Unexpected Weight Changes, Other Breast: No New/Changing Breast Lumps, No Nipple changes, No Nipple discharge, No Other Respiratory: No: Cough, Hemoptysis, Orthopnea, Pleuritic Pain, Shortness of breath, SOB with excertion, Sputum Changes, Stridor, Tachypnea, Wheezing, Other Cardiovascular: No Chest Pain, No Palpitations, No Orthopnea, No Paroxysmal Noc. Dyspnea, No Edema, No Lt Headedness, No Other Gastrointestinal: No Nausea, No Vomiting, No Abdominal Pain, No Diarrhea, No Constipation, No Melena, No Hematochezia, No Other Genitourinary: No Dysuria, No Frequency, No Incontinence, No Hematuria, No Retention, No Discharge, No Urgency, No Pain, No Flank Pain, No Other, No , No , No , No , No , No , No Musculoskeletal: No Gait Disturbance, No Joint Pain, No Joint Stiffness, No Joint Swelling, No Muscle Pain, No Muscular Weakness, No Pain In:, No Swelling In:, No Other Neurological: Yes Tremors; No Behavorial Changes, No Bowel/Bladder ControlChng, No Confusion, No Dizziness, No Gait Disturbance, No Headaches, No Impaired Coord/balance, No Memory Loss, No Numbness/Tingling, No Seizures, No Speech Problems, No Visual Changes, No Weakness, No Other Skin: No Dry Skin, No Eczema, No Hair Changes, No Lumps, No Mole Changes, No Mottling, No Nail Changes, No Pruritus, No Rash, No Skin Lesion Changes, No Other, No Acne Physical Exam General: Alert, Cooperative, No acute distress HEENT: Atraumatic, PERRLA, EOMI, Mucous membr. moist/pink Lungs: Clear to auscultation, Normal air movement Heart: S1S2, RRR, no thrills, no rubs, no gallops, no murmurs Abdomen: Normal bowel sounds, Soft, No tenderness, No hepatosplenomegaly, No masses Rectal Exam: not examined Extremities: No clubbing, No cyanosis, No edema, Normal pulses, No tenderness/swelling Skin: No rashes, No breakdown, No significant lesion Neuro: Normal gait, Normal speech, Strength at 5/5 X4 ext, Normal tone, Sensation intact, Cranial nerves 3-12 NL, Reflexes 2+ Psych/Mental Status: Other (Slight confusion, no short term memory) Vitals Vitals Vital Signs Date Time Temp Pulse Resp B/P (MAP) Pulse Ox O2 Delivery O2 Flow Rate FiO2 06/22/20 03:00 06/21/20 23:00 98.1 69 16 95 98.1 06/21/20 20:00 Room Air Labs Labs Laboratory Tests Test 06/21/20 16:55 06/22/20 01:20 White Blood Count 8.3 x10^3/uL (4.0-11.0) Red Blood Count 4.85 x10^6/uL (3.50-5.40) Hemoglobin 14.4 g/dL (12.0-15.5) Hematocrit 43.4 % (36.0-47.0) Mean Corpuscular Volume 90 fL (79-100) Mean Corpuscular Hemoglobin 30 pg (25-35) Mean Corpuscular Hemoglobin Concent 33 g/dL (31-37) Red Cell Distribution Width 14.9 % (11.5-14.5) Platelet Count 121 x10^3/uL (140-400) Neutrophils (%) (Auto) 61 % (31-73) Lymphocytes (%) (Auto) 27 % (24-48) Monocytes (%) (Auto) 11 % (0-9) Eosinophils (%) (Auto) 1 % (0-3) Basophils (%) (Auto) 1 % (0-3) Neutrophils # (Auto) 5.0 x10^3/uL (1.8-7.7) Lymphocytes # (Auto) 2.2 x10^3/uL (1.0-4.8) Monocytes # (Auto) 0.9 x10^3/uL (0.0-1.1) Eosinophils # (Auto) 0.1 x10^3/uL (0.0-0.7) Basophils # (Auto) 0.1 x10^3/uL (0.0-0.2) Platelet Estimate Adequate (ADEQUATE) Large Platelets Present Sodium Level 141 mmol/L (136-145) Potassium Level 3.3 mmol/L (3.5-5.1) Chloride Level 102 mmol/L (98-107) Carbon Dioxide Level 32 mmol/L (21-32) Anion Gap 7 (6-14) Blood Urea Nitrogen 20 mg/dL (7-20) Creatinine 1.0 mg/dL (0.6-1.0) Estimated GFR (Cockcroft-Gault) 53.3 BUN/Creatinine Ratio 20 (6-20) Glucose Level 97 mg/dL (70-99) Calcium Level 8.7 mg/dL (8.5-10.1) Magnesium Level 2.5 mg/dL (1.8-2.4) Total Bilirubin 0.2 mg/dL (0.2-1.0) Aspartate Amino Transf (AST/SGOT) 17 U/L (15-37) Alanine Aminotransferase (ALT/SGPT) 12 U/L (14-59) Alkaline Phosphatase 100 U/L (46-116) Total Protein 7.0 g/dL (6.4-8.2) Albumin 3.5 g/dL (3.4-5.0) Albumin/Globulin Ratio 1.0 (1.0-1.7) Thyroid Stimulating Hormone (TSH) 2.612 uIU/mL (0.358-3.74) Urine Collection Type Unknown Urine Color Yellow Urine Clarity Clear Urine pH 7.0 (<5.0-8.0) Urine Specific [place] 1.015 (1.000-1.030) Urine Protein Negative mg/dL (NEG-TRACE) Urine Glucose (UA) Negative mg/dL (NEG) Urine Ketones (Stick) Negative mg/dL (NEG) Urine Blood Negative (NEG) Urine Nitrite Negative (NEG) Urine Bilirubin Negative (NEG) Urine Urobilinogen Dipstick 0.2 mg/dL (0.2 mg/dL) Urine Leukocyte Esterase Negative (NEG) Urine RBC Occ /HPF (0-2) Urine WBC Occ /HPF (0-4) Urine Squamous Epithelial Cells Mod /LPF Urine Bacteria 0 /HPF (0-FEW) Urine Mucus Slight /LPF Urine Opiates Screen Neg (NEG) Urine Methadone Screen Neg (NEG) Urine Barbiturates Neg (NEG) Urine Phencyclidine Screen Neg (NEG) Urine Amphetamine/Methamphetamine Neg (NEG) Urine Benzodiazepines Screen Pos (NEG) Urine Cocaine Screen Neg (NEG) Urine Cannabinoids Screen Neg (NEG) Urine Ethyl Alcohol Neg (NEG) Laboratory Tests Test 06/21/20 16:55 06/22/20 01:20 White Blood Count 8.3 x10^3/uL (4.0-11.0) Red Blood Count 4.85 x10^6/uL (3.50-5.40) Hemoglobin 14.4 g/dL (12.0-15.5) Hematocrit 43.4 % (36.0-47.0) Mean Corpuscular Volume 90 fL (79-100) Mean Corpuscular Hemoglobin 30 pg (25-35) Mean Corpuscular Hemoglobin Concent 33 g/dL (31-37) Red Cell Distribution Width 14.9 % (11.5-14.5) Platelet Count 121 x10^3/uL (140-400) Neutrophils (%) (Auto) 61 % (31-73) Lymphocytes (%) (Auto) 27 % (24-48) Monocytes (%) (Auto) 11 % (0-9) Eosinophils (%) (Auto) 1 % (0-3) Basophils (%) (Auto) 1 % (0-3) Neutrophils # (Auto) 5.0 x10^3/uL (1.8-7.7) Lymphocytes # (Auto) 2.2 x10^3/uL (1.0-4.8) Monocytes # (Auto) 0.9 x10^3/uL (0.0-1.1) Eosinophils # (Auto) 0.1 x10^3/uL (0.0-0.7) Basophils # (Auto) 0.1 x10^3/uL (0.0-0.2) Platelet Estimate Adequate (ADEQUATE) Large Platelets Present Sodium Level 141 mmol/L (136-145) Potassium Level 3.3 mmol/L (3.5-5.1) Chloride Level 102 mmol/L (98-107) Carbon Dioxide Level 32 mmol/L (21-32) Anion Gap 7 (6-14) Blood Urea Nitrogen 20 mg/dL (7-20) Creatinine 1.0 mg/dL (0.6-1.0) Estimated GFR (Cockcroft-Gault) 53.3 BUN/Creatinine Ratio 20 (6-20) Glucose Level 97 mg/dL (70-99) Calcium Level 8.7 mg/dL (8.5-10.1) Magnesium Level 2.5 mg/dL (1.8-2.4) Total Bilirubin 0.2 mg/dL (0.2-1.0) Aspartate Amino Transf (AST/SGOT) 17 U/L (15-37) Alanine Aminotransferase (ALT/SGPT) 12 U/L (14-59) Alkaline Phosphatase 100 U/L (46-116) Total Protein 7.0 g/dL (6.4-8.2) Albumin 3.5 g/dL (3.4-5.0) Albumin/Globulin Ratio 1.0 (1.0-1.7) Thyroid Stimulating Hormone (TSH) 2.612 uIU/mL (0.358-3.74) Urine Collection Type Unknown Urine Color Yellow Urine Clarity Clear Urine pH 7.0 (<5.0-8.0) Urine Specific [place] 1.015 (1.000-1.030) Urine Protein Negative mg/dL (NEG-TRACE) Urine Glucose (UA) Negative mg/dL (NEG) Urine Ketones (Stick) Negative mg/dL (NEG) Urine Blood Negative (NEG) Urine Nitrite Negative (NEG) Urine Bilirubin Negative (NEG) Urine Urobilinogen Dipstick 0.2 mg/dL (0.2 mg/dL) Urine Leukocyte Esterase Negative (NEG) Urine RBC Occ /HPF (0-2) Urine WBC Occ /HPF (0-4) Urine Squamous Epithelial Cells Mod /LPF Urine Bacteria 0 /HPF (0-FEW) Urine Mucus Slight /LPF Urine Opiates Screen Neg (NEG) Urine Methadone Screen Neg (NEG) Urine Barbiturates Neg (NEG) Urine Phencyclidine Screen Neg (NEG) Urine Amphetamine/Methamphetamine Neg (NEG) Urine Benzodiazepines Screen Pos (NEG) Urine Cocaine Screen Neg (NEG) Urine Cannabinoids Screen Neg (NEG) Urine Ethyl Alcohol Neg (NEG) VTE Prophylaxis Ordered VTE Prophylaxis Devices: No VTE Pharmacological Prophylaxi: Yes Assessment/Plan Assessment/Plan A/P: New onset myoclonus -likely some Valium withdrawal. Neurology consulted. 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 complications FEN - Cardiac diet PPX - lovenox FULL CODE Dispo - inpatient likely d/c in next 24 hours Justicifation of Admission Dx: Justifications for Admission: Justification of Admission Dx: Yes TIM PICKENS MD Jun 22, 2020 08:02
--- NOTE | 2020-06-22 09:43 | EEG ---
DATE OF SERVICE: 06/22/2020 EEG NUMBER: [id number]. OBJECTIVE: The patient is an 80-year-old female with new onset of myoclonus. DESCRIPTION: This is a digital study. Electrodes are placed according to the international 10-20 system. Bipolar and referential montages are available. Activation procedures typically include hyperventilation and intermittent photic stimulation. INTERPRETATION: The waking background consists of 9-10 Hz, 50-100 microvolt activity, symmetrically distributed over parietooccipital regions and reactive to eye opening. Hyperventilation and intermittent photic stimulation are noncontributory. Sleep is not achieved. IMPRESSION: This electroencephalogram with the patient awake only is within normal limits. There is no focal, paroxysmal or epileptiform activity. Thank you for letting us help with the patient's care. DAVIDE DEAL MD DR: YI/yvonne JOB#: [id number] / [id number]
[2020-06-22] MEDS: ATENOLOL 25 MG TABLET. PO SCH (10:31)
[2020-06-22] MEDS: clonazePAM 0.5 MG TABLET PO SCH ×3 (10:31→22:08)
[2020-06-22] MEDS: ASPIRIN ENTERIC COATED 81 MG TABLET.DR. PO SCH (10:31)
[2020-06-22] MEDS: amLODIPine BESYLATE 5 MG TABLET PO SCH (10:36)
[2020-06-22 11:15] VITALS: BP 153/66
[2020-06-22] MEDS: ACETAMINOPHEN 500 MG TABLET PO PRN ×2 (11:17→22:08)
--- NOTE | 2020-06-22 13:55 | PDOC ---
PROGRESS NOTES Assessment Problems Medical Problems: (1) Myoclonus Status: Acute New onset myoclonus, my best explanation is the starting and stopping of Valium. EEG today is normal Mild cognitive impairment, I do not think she is demented, says that this has been stable, no worsening Plan Observe one more night in hospital, patient is afraid to go home Scheduled clonazepam, side effects discussed with Stop Valium No need for additional studies such as MRI, lumbar puncture, Creutzfeldt Ángel testing Subjective Worried about myoclonus Objective Vital Signs Date Time Temp Pulse Resp B/P (MAP) Pulse Ox O2 Delivery O2 Flow Rate FiO2 06/22/20 11:15 98.0 72 18 153/66 (95) 95 Room Air 98.0 l Intake and Output 06/22/20 07:00 Intake Total 480 ml Balance 480 ml Intake Oral 480 ml # Voids 5 PHYSICAL EXAM Alert. Oriented to time, place and person. PERRL. EOMI. CN: no focal findings. Muscle tone: normal. Muscle strength: 5/5 Two brief episodes of mild clonus while I visited her over about 10 minutes, much less frequent than yesterday DTR: 2+ Plantar reflex: flexor Gait: normal. Sensory exam: no abnormal findings. No cerebellar signs elicited. Review of Relevant I have reviewed the following items stef (where applicable) has been applied. Labs Laboratory Tests Test 06/21/20 16:55 06/22/20 01:20 White Blood Count 8.3 x10^3/uL (4.0-11.0) Red Blood Count 4.85 x10^6/uL (3.50-5.40) Hemoglobin 14.4 g/dL (12.0-15.5) Hematocrit 43.4 % (36.0-47.0) Mean Corpuscular Volume 90 fL (79-100) Mean Corpuscular Hemoglobin 30 pg (25-35) Mean Corpuscular Hemoglobin Concent 33 g/dL (31-37) Red Cell Distribution Width 14.9 % (11.5-14.5) Platelet Count 121 x10^3/uL (140-400) Neutrophils (%) (Auto) 61 % (31-73) Lymphocytes (%) (Auto) 27 % (24-48) Monocytes (%) (Auto) 11 % (0-9) Eosinophils (%) (Auto) 1 % (0-3) Basophils (%) (Auto) 1 % (0-3) Neutrophils # (Auto) 5.0 x10^3/uL (1.8-7.7) Lymphocytes # (Auto) 2.2 x10^3/uL (1.0-4.8) Monocytes # (Auto) 0.9 x10^3/uL (0.0-1.1) Eosinophils # (Auto) 0.1 x10^3/uL (0.0-0.7) Basophils # (Auto) 0.1 x10^3/uL (0.0-0.2) Platelet Estimate Adequate (ADEQUATE) Large Platelets Present Sodium Level 141 mmol/L (136-145) Potassium Level 3.3 mmol/L (3.5-5.1) Chloride Level 102 mmol/L (98-107) Carbon Dioxide Level 32 mmol/L (21-32) Anion Gap 7 (6-14) Blood Urea Nitrogen 20 mg/dL (7-20) Creatinine 1.0 mg/dL (0.6-1.0) Estimated GFR (Cockcroft-Gault) 53.3 BUN/Creatinine Ratio 20 (6-20) Glucose Level 97 mg/dL (70-99) Calcium Level 8.7 mg/dL (8.5-10.1) Magnesium Level 2.5 mg/dL (1.8-2.4) Total Bilirubin 0.2 mg/dL (0.2-1.0) Aspartate Amino Transf (AST/SGOT) 17 U/L (15-37) Alanine Aminotransferase (ALT/SGPT) 12 U/L (14-59) Alkaline Phosphatase 100 U/L (46-116) Total Protein 7.0 g/dL (6.4-8.2) Albumin 3.5 g/dL (3.4-5.0) Albumin/Globulin Ratio 1.0 (1.0-1.7) Thyroid Stimulating Hormone (TSH) 2.612 uIU/mL (0.358-3.74) Urine Collection Type Unknown Urine Color Yellow Urine Clarity Clear Urine pH 7.0 (<5.0-8.0) Urine Specific [place] 1.015 (1.000-1.030) Urine Protein Negative mg/dL (NEG-TRACE) Urine Glucose (UA) Negative mg/dL (NEG) Urine Ketones (Stick) Negative mg/dL (NEG) Urine Blood Negative (NEG) Urine Nitrite Negative (NEG) Urine Bilirubin Negative (NEG) Urine Urobilinogen Dipstick 0.2 mg/dL (0.2 mg/dL) Urine Leukocyte Esterase Negative (NEG) Urine RBC Occ /HPF (0-2) Urine WBC Occ /HPF (0-4) Urine Squamous Epithelial Cells Mod /LPF Urine Bacteria 0 /HPF (0-FEW) Urine Mucus Slight /LPF Urine Opiates Screen Neg (NEG) Urine Methadone Screen Neg (NEG) Urine Barbiturates Neg (NEG) Urine Phencyclidine Screen Neg (NEG) Urine Amphetamine/Methamphetamine Neg (NEG) Urine Benzodiazepines Screen Pos (NEG) Urine Cocaine Screen Neg (NEG) Urine Cannabinoids Screen Neg (NEG) Urine Ethyl Alcohol Neg (NEG) Laboratory Tests Test 06/21/20 16:55 06/22/20 01:20 White Blood Count 8.3 x10^3/uL (4.0-11.0) Red Blood Count 4.85 x10^6/uL (3.50-5.40) Hemoglobin 14.4 g/dL (12.0-15.5) Hematocrit 43.4 % (36.0-47.0) Mean Corpuscular Volume 90 fL (79-100) Mean Corpuscular Hemoglobin 30 pg (25-35) Mean Corpuscular Hemoglobin Concent 33 g/dL (31-37) Red Cell Distribution Width 14.9 % (11.5-14.5) Platelet Count 121 x10^3/uL (140-400) Neutrophils (%) (Auto) 61 % (31-73) Lymphocytes (%) (Auto) 27 % (24-48) Monocytes (%) (Auto) 11 % (0-9) Eosinophils (%) (Auto) 1 % (0-3) Basophils (%) (Auto) 1 % (0-3) Neutrophils # (Auto) 5.0 x10^3/uL (1.8-7.7) Lymphocytes # (Auto) 2.2 x10^3/uL (1.0-4.8) Monocytes # (Auto) 0.9 x10^3/uL (0.0-1.1) Eosinophils # (Auto) 0.1 x10^3/uL (0.0-0.7) Basophils # (Auto) 0.1 x10^3/uL (0.0-0.2) Platelet Estimate Adequate (ADEQUATE) Large Platelets Present Sodium Level 141 mmol/L (136-145) Potassium Level 3.3 mmol/L (3.5-5.1) Chloride Level 102 mmol/L (98-107) Carbon Dioxide Level 32 mmol/L (21-32) Anion Gap 7 (6-14) Blood Urea Nitrogen 20 mg/dL (7-20) Creatinine 1.0 mg/dL (0.6-1.0) Estimated GFR (Cockcroft-Gault) 53.3 BUN/Creatinine Ratio 20 (6-20) Glucose Level 97 mg/dL (70-99) Calcium Level 8.7 mg/dL (8.5-10.1) Magnesium Level 2.5 mg/dL (1.8-2.4) Total Bilirubin 0.2 mg/dL (0.2-1.0) Aspartate Amino Transf (AST/SGOT) 17 U/L (15-37) Alanine Aminotransferase (ALT/SGPT) 12 U/L (14-59) Alkaline Phosphatase 100 U/L (46-116) Total Protein 7.0 g/dL (6.4-8.2) Albumin 3.5 g/dL (3.4-5.0) Albumin/Globulin Ratio 1.0 (1.0-1.7) Thyroid Stimulating Hormone (TSH) 2.612 uIU/mL (0.358-3.74) Urine Collection Type Unknown Urine Color Yellow Urine Clarity Clear Urine pH 7.0 (<5.0-8.0) Urine Specific [place] 1.015 (1.000-1.030) Urine Protein Negative mg/dL (NEG-TRACE) Urine Glucose (UA) Negative mg/dL (NEG) Urine Ketones (Stick) Negative mg/dL (NEG) Urine Blood Negative (NEG) Urine Nitrite Negative (NEG) Urine Bilirubin Negative (NEG) Urine Urobilinogen Dipstick 0.2 mg/dL (0.2 mg/dL) Urine Leukocyte Esterase Negative (NEG) Urine RBC Occ /HPF (0-2) Urine WBC Occ /HPF (0-4) Urine Squamous Epithelial Cells Mod /LPF Urine Bacteria 0 /HPF (0-FEW) Urine Mucus Slight /LPF Urine Opiates Screen Neg (NEG) Urine Methadone Screen Neg (NEG) Urine Barbiturates Neg (NEG) Urine Phencyclidine Screen Neg (NEG) Urine Amphetamine/Methamphetamine Neg (NEG) Urine Benzodiazepines Screen Pos (NEG) Urine Cocaine Screen Neg (NEG) Urine Cannabinoids Screen Neg (NEG) Urine Ethyl Alcohol Neg (NEG) Medications Current Medications Lorazepam (Ativan Inj) 1 mg 1X ONCE IV Last administered on 06/21/20 16:58; Start 06/21/20 at 16:15; Stop 06/21/20 at 16:16; Status DC Ondansetron HCl (Zofran) 4 mg PRN Q8HRS PRN IV NAUSEA/VOMITING; Start 06/21/20 at 17:00; Stop 06/22/20 at 16:59 Sodium Chloride 1,000 ml @ 125 mls/hr Q8H IV Last administered on 06/21/20 17:16; Start 06/21/20 at 16:48; Stop 06/22/20 at 16:47 Clonazepam (KlonoPIN) 0.5 mg TID PO Last administered on 06/22/20 10:31; Start 06/21/20 at 21:00 Lorazepam (Ativan Inj) 1 mg PRN Q2HRS PRN IV TREMORS; Start 06/21/20 at 17:30 Acetaminophen (Tylenol) 1,000 mg PRN Q6HRS PRN PO MILD PAIN / TEMP > 100.3'F Last administered on 06/22/20at 11:17; Start 06/21/20 at 22:30 Aspirin (Ecotrin) 81 mg DAILYWBKFT PO Last administered on 06/22/20 10:31; Start 06/22/20 at 08:00 Trazodone HCl (Desyrel) 100 mg QHS PO Last administered on 06/21/20 22:04; Start 06/21/20 at 21:30 Amlodipine Besylate (Norvasc) 2.5 mg DAILY PO Last administered on 06/22/20 10:36; Start 06/22/20 at 09:00 Atenolol (Tenormin) 50 mg DAILY PO Last administered on 06/22/20 10:31; Start 06/22/20 at 09:00 Atorvastatin Calcium (Lipitor) 40 mg HS PO Last administered on 8/19/20at 22:05; Start 06/21/20 at 21:45 Potassium Chloride (Klor-Con) 40 meq 1X ONCE PO Last administered on 06/22/20at 10:37; Start 06/22/20 at 08:00; Stop 06/22/20 at 08:02; Status DC Active Scripts Active Reported Valium (Diazepam) 5 Mg Tablet 5-10 Mg PO HS Acetaminophen 500 Mg Tablet 2 Tab PO Q6HRS PRN Trazodone Hcl 100 Mg Tablet 1 Tab PO QHS Norvasc (Amlodipine Besylate) 2.5 Mg Tablet 1 Tab PO DAILY Crestor (Rosuvastatin Calcium) 10 Mg Tablet 1 Tab PO HS Bisoprolol Fumarate 5 Mg Tablet 1 Tab PO DAILY Aspir 81 (Aspirin) 81 Mg Tablet.dr 1 Tab PO DAILY Vitals/I & O Vital Sign - Last 24 Hours 06/21/20 06/21/20 06/21/20 06/21/20 15:35 16:00 17:00 18:00 Temp 98.5 98.5 Pulse 67 68 68 66 Resp 16 B/P (MAP) 182/85 (117) 172/79 (110) 159/69 (99) 154/67 (96) Pulse Ox 97 95 95 94 O2 Delivery Room Air Room Air Room Air Room Air 06/21/20 06/21/20 06/21/20 06/22/20 20:00 20:15 23:00 03:00 Temp 97.8 98.1 97.8 98.1 Pulse 68 69 Resp 18 16 B/P (MAP) 128/78 (95) 118/62 (80) Pulse Ox 95 95 O2 Delivery Room Air 06/22/20 06/22/20 06/22/20 06/22/20 07:15 10:31 10:36 11:15 Temp 98.1 98.0 98.1 98.0 Pulse 67 67 67 72 Resp 16 18 B/P (MAP) 152/62 (92) 152/62 152/62 153/66 (95) Pulse Ox 95 95 O2 Delivery Room Air Room Air Intake and Output 0 06/21/20 06/21/20 06/22/20 15:00 23:00 07:00 Intake Total 480 ml Balance 480 ml Justicifation of Admission Dx: Justifications for Admission: Justification of Admission Dx: Yes DAVIDE DEAL MD Jun 22, 2020 13:55
[2020-06-22 15:15] VITALS: BP 129/67
--- NOTE | 2020-06-22 17:27 | NUR ---
SW following. Reviewed chart and discussed with RN. Pt from home, room air, cardiac diet. No PT/OT needs. Pt on IV Ativan and neurology was consulted per chief complaint of shaking. Spoke with spouse who stated he is taking time off work to be with patient until "she gets back on her feet." Pt's spouse stated no safety concerns or SW needs at discharge. SW consulted to assess for "safety concerns and family dynamics." SW will attempt to meet with pt alone prior to anticipated discharge tomorrow. SW to follow.
[2020-06-22 19:00] VITALS: BP 129/60
[2020-06-22] MEDS: ATORVASTATIN CALCIUM 40 MG TABLET. PO SCH (20:19)
[2020-06-22] MEDS: traZODone 100 MG TABLET. PO SCH (22:09)
[2020-06-22 23:00] VITALS: BP 117/52
[2020-06-23 03:00] VITALS: BP 120/51
[2020-06-23 07:00] VITALS: BP 157/74
--- NOTE | 2020-06-23 09:02 | PDOC ---
PROGRESS NOTES Assessment Problems Medical Problems: (1) Myoclonus Status: Acute New onset myoclonus, my best explanation is the starting and stopping of Valium. EEG was normal. Possible voluntary component Mild cognitive impairment, I do not think she is demented, says that this has been stable, no worsening Plan Scheduled clonazepam, asked Dr. Lopez to prescribe a month's worse Stop Valium Follow up with me in 1 month Subjective Still having myoclonus, worried about this Objective Vital Signs Date Time Temp Pulse Resp B/P (MAP) Pulse Ox O2 Delivery O2 Flow Rate FiO2 06/23/20 07:00 97.9 67 18 157/74 (101) 97 Room Air 97.9 Intake and Output 06/23/20 07:00 Intake Total 500 ml Output Total 0 ml Balance 500 ml IV Total 500 ml Output Urine Total 0 ml # Voids 5 PHYSICAL EXAM Alert. Oriented to time, place and person. PERRL. EOMI. CN: no focal findings. Muscle tone: normal. Muscle strength: 5/5 Episodes of myoclonus, seems to be worse when she is talking about it DTR: 2+ Plantar reflex: flexor Gait: normal. Sensory exam: no abnormal findings. No cerebellar signs elicited. Review of Relevant I have reviewed the following items stef (where applicable) has been applied. Labs Laboratory Tests Test 06/21/20 16:55 06/22/20 01:20 White Blood Count 8.3 x10^3/uL (4.0-11.0) Red Blood Count 4.85 x10^6/uL (3.50-5.40) Hemoglobin 14.4 g/dL (12.0-15.5) Hematocrit 43.4 % (36.0-47.0) Mean Corpuscular Volume 90 fL (79-100) Mean Corpuscular Hemoglobin 30 pg (25-35) Mean Corpuscular Hemoglobin Concent 33 g/dL (31-37) Red Cell Distribution Width 14.9 % (11.5-14.5) Platelet Count 121 x10^3/uL (140-400) Neutrophils (%) (Auto) 61 % (31-73) Lymphocytes (%) (Auto) 27 % (24-48) Monocytes (%) (Auto) 11 % (0-9) Eosinophils (%) (Auto) 1 % (0-3) Basophils (%) (Auto) 1 % (0-3) Neutrophils # (Auto) 5.0 x10^3/uL (1.8-7.7) Lymphocytes # (Auto) 2.2 x10^3/uL (1.0-4.8) Monocytes # (Auto) 0.9 x10^3/uL (0.0-1.1) Eosinophils # (Auto) 0.1 x10^3/uL (0.0-0.7) Basophils # (Auto) 0.1 x10^3/uL (0.0-0.2) Platelet Estimate Adequate (ADEQUATE) Large Platelets Present Sodium Level 141 mmol/L (136-145) Potassium Level 3.3 mmol/L (3.5-5.1) Chloride Level 102 mmol/L (98-107) Carbon Dioxide Level 32 mmol/L (21-32) Anion Gap 7 (6-14) Blood Urea Nitrogen 20 mg/dL (7-20) Creatinine 1.0 mg/dL (0.6-1.0) Estimated GFR (Cockcroft-Gault) 53.3 BUN/Creatinine Ratio 20 (6-20) Glucose Level 97 mg/dL (70-99) Calcium Level 8.7 mg/dL (8.5-10.1) Magnesium Level 2.5 mg/dL (1.8-2.4) Total Bilirubin 0.2 mg/dL (0.2-1.0) Aspartate Amino Transf (AST/SGOT) 17 U/L (15-37) Alanine Aminotransferase (ALT/SGPT) 12 U/L (14-59) Alkaline Phosphatase 100 U/L (46-116) Total Protein 7.0 g/dL (6.4-8.2) Albumin 3.5 g/dL (3.4-5.0) Albumin/Globulin Ratio 1.0 (1.0-1.7) Thyroid Stimulating Hormone (TSH) 2.612 uIU/mL (0.358-3.74) Urine Collection Type Unknown Urine Color Yellow Urine Clarity Clear Urine pH 7.0 (<5.0-8.0) Urine Specific [place] 1.015 (1.000-1.030) Urine Protein Negative mg/dL (NEG-TRACE) Urine Glucose (UA) Negative mg/dL (NEG) Urine Ketones (Stick) Negative mg/dL (NEG) Urine Blood Negative (NEG) Urine Nitrite Negative (NEG) Urine Bilirubin Negative (NEG) Urine Urobilinogen Dipstick 0.2 mg/dL (0.2 mg/dL) Urine Leukocyte Esterase Negative (NEG) Urine RBC Occ /HPF (0-2) Urine WBC Occ /HPF (0-4) Urine Squamous Epithelial Cells Mod /LPF Urine Bacteria 0 /HPF (0-FEW) Urine Mucus Slight /LPF Urine Opiates Screen Neg (NEG) Urine Methadone Screen Neg (NEG) Urine Barbiturates Neg (NEG) Urine Phencyclidine Screen Neg (NEG) Urine Amphetamine/Methamphetamine Neg (NEG) Urine Benzodiazepines Screen Pos (NEG) Urine Cocaine Screen Neg (NEG) Urine Cannabinoids Screen Neg (NEG) Urine Ethyl Alcohol Neg (NEG) Medications Current Medications Lorazepam (Ativan Inj) 1 mg 1X ONCE IV Last administered on 06/21/20 16:58; Start 06/21/20 at 16:15; Stop 06/21/20 at 16:16; Status DC Ondansetron HCl (Zofran) 4 mg PRN Q8HRS PRN IV NAUSEA/VOMITING; Start 06/21/20 at 17:00; Stop 06/22/20 at 16:59; Status DC Sodium Chloride 1,000 ml @ 125 mls/hr Q8H IV Last administered on 06/21/20at 17:16; Start 06/21/20 at 16:48; Stop 06/22/20 at 15:02; Status DC Clonazepam (KlonoPIN) 0.5 mg TID PO Last administered on 06/22/20 22:08; Start 06/21/20 at 21:00 Lorazepam (Ativan Inj) 1 mg PRN Q2HRS PRN IV TREMORS; Start 06/21/20 at 17:30 Acetaminophen (Tylenol) 1,000 mg PRN Q6HRS PRN PO MILD PAIN / TEMP > 100.3'F Last administered on 06/22/20 22:08; Start 06/21/20 at 22:30 Aspirin (Ecotrin) 81 mg DAILYWBKFT PO Last administered on 06/22/20at 10:31; Start 06/22/20 at 08:00 Trazodone HCl (Desyrel) 100 mg QHS PO Last administered on 8/20/20at 22:09; Start 06/21/20 at 21:30 Amlodipine Besylate (Norvasc) 2.5 mg DAILY PO Last administered on 06/22/20at 10:36; Start 06/22/20 at 09:00 Atenolol (Tenormin) 50 mg DAILY PO Last administered on 06/22/20at 10:31; Start 06/22/20 at 09:00 Atorvastatin Calcium (Lipitor) 40 mg HS PO Last administered on 06/22/20at 20:19; Start 06/21/20 at 21:45 Potassium Chloride (Klor-Con) 40 meq 1X ONCE PO Last administered on 06/22/20at 10:37; Start 06/22/20 at 08:00; Stop 06/22/20 at 08:02; Status DC Active Scripts Active Reported Valium (Diazepam) 5 Mg Tablet 5-10 Mg PO HS Acetaminophen 500 Mg Tablet 2 Tab PO Q6HRS PRN Trazodone Hcl 100 Mg Tablet 1 Tab PO QHS Norvasc (Amlodipine Besylate) 2.5 Mg Tablet 1 Tab PO DAILY Crestor (Rosuvastatin Calcium) 10 Mg Tablet 1 Tab PO HS Bisoprolol Fumarate 5 Mg Tablet 1 Tab PO DAILY Aspir 81 (Aspirin) 81 Mg Tablet.dr 1 Tab PO DAILY Vitals/I & O Vital Sign - Last 24 Hours 06/22/20 06/22/20 06/22/20 06/22/20 10:31 10:36 11:15 15:15 Temp 98.0 98.0 98.0 98.0 Pulse 67 67 72 63 Resp 18 16 B/P (MAP) 152/62 152/62 153/66 (95) 129/67 (87) Pulse Ox 95 94 O2 Delivery Room Air Room Air 06/22/20 06/22/20 06/22/20 06/23/20 19:00 20:00 23:00 03:00 Temp 97.9 98.0 97.9 97.9 98.0 97.9 Pulse 63 60 62 Resp 22 20 22 B/P (MAP) 129/60 (83) 117/52 (73) 120/51 (74) Pulse Ox 94 96 95 O2 Delivery Room Air Room Air Room Air Room Air 06/23/20 07:00 Temp 97.9 97.9 Pulse 67 Resp 18 B/P (MAP) 157/74 (101) Pulse Ox 97 O2 Delivery Room Air Intake and Output 06/22/20 06/22/20 06/23/20 15:00 23:00 07:00 Intake Total 500 ml Output Total 0 ml 0 ml Balance 500 ml 0 ml 0 ml Justicifation of Admission Dx: Justifications for Admission: Justification of Admission Dx: Yes DAVIDE DEAL MD Jun 23, 2020 09:02
--- NOTE | 2020-06-23 09:18 | PDOC ---
[facility] PROGRESS NOTE Date of Service DOS: DATE: 06/23/20 TIME: 09:18 Chief Complaint Chief Complaint A/P: New onset myoclonus -likely some Valium withdrawal. Neurology consulted. 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 She sleeps alone so she is not sure if it happens when she is sleeping. She states it happens every few seconds and is uncontrollable. It is gotten to the point now that it actually is really starting to interfere with her activities of daily living. She still drives walks and does not have any tremors when she is moving only when she is sitting or laying down. She denies any lateralizing neurologic w eakness. She has had no change in medicine or diet. She denies any headache. She has taken Valium at night in the past. EKG sinus rhythm rate of [address] segment changes no T wave inversions. EEG with neurology with no epileptic activity. She still has myoclonus and is bothered by this. They have asked for a second opinion from different neurologist but note less myoclonus with clonazepam, willing to stop valium, though they just filled it prior to admission. Vitals/I&O Vitals/I&O: Vital Signs Date Time Temp Pulse Resp B/P (MAP) Pulse Ox O2 Delivery O2 Flow Rate FiO2 06/23/20 07:00 97.9 67 18 157/74 (101) 97 Room Air 97.9 I & O 06/22/20 06/22/20 06/23/20 15:00 23:00 07:00 Intake Total 500 ml Output Total 0 ml 0 ml Balance 500 ml 0 ml 0 ml Physical Exam General: Alert, Cooperative, No acute distress Lungs: Clear Abdomen: Normal bowel sounds, Soft, No tenderness, No hepatosplenomegaly, No masses Extremities: No clubbing, No cyanosis, No edema, Normal pulses, No tenderness/swelling Skin: No rashes, No breakdown, No significant lesion Assessment and Plan Assessmemt and Plan Problems Medical Problems: (1) Myoclonus Status: Acute Comment Review of Relevant I have reviewed the following items stef (where applicable) has been applied. Justicifation of Admission Dx: Justifications for Admission: Justification of Admission Dx: Yes TIM PICKENS MD Jun 23, 2020 09:18
[2020-06-23] MEDS: amLODIPine BESYLATE 5 MG TABLET PO SCH (10:04)
[2020-06-23] MEDS: ASPIRIN ENTERIC COATED 81 MG TABLET.DR. PO SCH (10:04)
[2020-06-23] MEDS: clonazePAM 0.5 MG TABLET PO SCH (10:04)
[2020-06-23] MEDS: ATENOLOL 25 MG TABLET. PO SCH (10:05)
[2020-06-23 11:00] VITALS: BP 137/80
[2020-06-23] MEDS ORDERED: CLON-77 PO (13:00)
--- NOTE | 2020-06-23 13:11 | PDOC3 ---
Discharge Summary Visit Information Date of Admission: Jun 21, 2020 Date of Discharge: Jun 23, 2020 Admitting Diagnosis: Myoclonus Final Diagnosis Problems Medical Problems: (1) Myoclonus Status: Acute Brief Hospital Course Allergies Allergies Coded Allergies Type Severity Reaction Last Updated Verified Tricyclic Compounds Allergy Intermediate Anxiety 11/28/16 Yes Sulfa (Sulfonamide Antibiotics) Allergy Unknown Rash 11/28/16 Yes fexofenadine Allergy Unknown anxiety 11/28/16 Yes Vital Signs Vital Signs Date Time Temp Pulse Resp B/P (MAP) Pulse Ox O2 Delivery O2 Flow Rate FiO2 06/23/20 11:00 98.2 61 18 137/80 (99) 98 Room Air 98.2 Lab Results Laboratory Tests Test 06/21/20 16:55 06/22/20 01:20 White Blood Count 8.3 x10^3/uL (4.0-11.0) Red Blood Count 4.85 x10^6/uL (3.50-5.40) Hemoglobin 14.4 g/dL (12.0-15.5) Hematocrit 43.4 % (36.0-47.0) Mean Corpuscular Volume 90 fL (79-100) Mean Corpuscular Hemoglobin 30 pg (25-35) Mean Corpuscular Hemoglobin Concent 33 g/dL (31-37) Red Cell Distribution Width 14.9 % (11.5-14.5) Platelet Count 121 x10^3/uL (140-400) Neutrophils (%) (Auto) 61 % (31-73) Lymphocytes (%) (Auto) 27 % (24-48) Monocytes (%) (Auto) 11 % (0-9) Eosinophils (%) (Auto) 1 % (0-3) Basophils (%) (Auto) 1 % (0-3) Neutrophils # (Auto) 5.0 x10^3/uL (1.8-7.7) Lymphocytes # (Auto) 2.2 x10^3/uL (1.0-4.8) Monocytes # (Auto) 0.9 x10^3/uL (0.0-1.1) Eosinophils # (Auto) 0.1 x10^3/uL (0.0-0.7) Basophils # (Auto) 0.1 x10^3/uL (0.0-0.2) Platelet Estimate Adequate (ADEQUATE) Large Platelets Present Sodium Level 141 mmol/L (136-145) Potassium Level 3.3 mmol/L (3.5-5.1) Chloride Level 102 mmol/L (98-107) Carbon Dioxide Level 32 mmol/L (21-32) Anion Gap 7 (6-14) Blood Urea Nitrogen 20 mg/dL (7-20) Creatinine 1.0 mg/dL (0.6-1.0) Estimated GFR (Cockcroft-Gault) 53.3 BUN/Creatinine Ratio 20 (6-20) Glucose Level 97 mg/dL (70-99) Calcium Level 8.7 mg/dL (8.5-10.1) Magnesium Level 2.5 mg/dL (1.8-2.4) Total Bilirubin 0.2 mg/dL (0.2-1.0) Aspartate Amino Transf (AST/SGOT) 17 U/L (15-37) Alanine Aminotransferase (ALT/SGPT) 12 U/L (14-59) Alkaline Phosphatase 100 U/L (46-116) Total Protein 7.0 g/dL (6.4-8.2) Albumin 3.5 g/dL (3.4-5.0) Albumin/Globulin Ratio 1.0 (1.0-1.7) Thyroid Stimulating Hormone (TSH) 2.612 uIU/mL (0.358-3.74) Urine Collection Type Unknown Urine Color Yellow Urine Clarity Clear Urine pH 7.0 (<5.0-8.0) Urine Specific [place] 1.015 (1.000-1.030) Urine Protein Negative mg/dL (NEG-TRACE) Urine Glucose (UA) Negative mg/dL (NEG) Urine Ketones (Stick) Negative mg/dL (NEG) Urine Blood Negative (NEG) Urine Nitrite Negative (NEG) Urine Bilirubin Negative (NEG) Urine Urobilinogen Dipstick 0.2 mg/dL (0.2 mg/dL) Urine Leukocyte Esterase Negative (NEG) Urine RBC Occ /HPF (0-2) Urine WBC Occ /HPF (0-4) Urine Squamous Epithelial Cells Mod /LPF Urine Bacteria 0 /HPF (0-FEW) Urine Mucus Slight /LPF Urine Opiates Screen Neg (NEG) Urine Methadone Screen Neg (NEG) Urine Barbiturates Neg (NEG) Urine Phencyclidine Screen Neg (NEG) Urine Amphetamine/Methamphetamine Neg (NEG) Urine Benzodiazepines Screen Pos (NEG) Urine Cocaine Screen Neg (NEG) Urine Cannabinoids Screen Neg (NEG) Urine Ethyl Alcohol Neg (NEG) Brief Hospital Course Ms Torres is an 80-year-old female with PMHx Anxiety, CAD s/p TAYLOR x2, High Cholesterol, h/o polio, and ventricular premature stenosis who presents with a 3-day history of uncontrolled jerking of her arms and legs. She sleeps alone so she is not sure if it happens when she is sleeping. She states it happens every few seconds and is uncontrollable. It is gotten to the point now that it actually is really starting to interfere with her activities of daily living. She still drives walks and does not have any tremors when she is moving only when she is sitting or laying down. She denies any lateralizing neurologic weakness. She has had no change in medicine or diet. She denies any headache. She has taken Valium at night in the past. EKG sinus rhythm rate of [address] segment changes no T wave inversions. EEG with neurology with no epileptic activity. She still has myoclonus and is bothered by this. They have asked for a second opinion from different neurologist but note less myoclonus with clonazepam, willing to stop valium, though they just filled it prior to admission. New onset myoclonus -likely some Valium withdrawal. Neurology consulted. 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 complications Greater than 30 minutes spent on d/c Discharge Information Condition at Discharge: Improved Follow Up: Weeks Disposition/Orders: D/C to Home Scheduled Amlodipine Besylate (Norvasc) 2.5 Mg Tablet, 1 TAB PO DAILY, #30 Ref 5 (Reported) Entered as Reported by: SIS REGAN on 11/28/16732 Last Action: Converted on 06/21/202121 by JADE DUQUE Aspirin (Aspir 81) 81 Mg Tablet., 1 TAB PO DAILY, #30 Ref 5 (Reported) Entered as Reported by: SIS REGAN on 11/28/16732 Last Action: Continued on 06/21/202121 by JADE DUQEU Bisoprolol Fumarate (Bisoprolol Fumarate) 5 Mg Tablet, 1 TAB PO DAILY, #30 Ref 5 (Reported) Entered as Reported by: SIS REGAN on 11/28/16732 Last Action: Converted on 06/21/202121 by JADE DUQUE Rosuvastatin Calcium (Crestor) 10 Mg Tablet, 1 TAB PO HS, #30 Ref 5 (Reported) Entered as Reported by: SIS REGAN on 11/28/16732 Last Action: Converted on 06/21/202121 by JADE DUQUE Trazodone Hcl (Trazodone Hcl) 100 Mg Tablet, 1 TAB PO QHS, #30 Ref 1 (Reported) Entered as Reported by: SIS REGAN on 11/28/16732 Last Action: Continued on 06/21/202121 by JADE DUQUE Scheduled PRN Acetaminophen (Acetaminophen) 500 Mg Tablet, 2 TAB PO Q6HRS PRN for PAIN, #60 (Reported) Entered as Reported by: SIS REGAN on 11/28/16732 Last Action: Edited on 06/21/202129 by JADE DUQUE Clonazepam (Clonazepam ) 0.5 Mg Tablet, 0.5 MG PO PRN BID PRN for TREMORS for 30 Days, #60 Ref 0 Prescribed by: TIM PICKENS MD on 06/23/20 1301 Discontinued Medications Diazepam (Valium) 5 Mg Tablet, 5-10 MG PO HS, (Reported) Entered as Reported by: SIS REGAN on 11/28/16732 Last Action: Reviewed on 06/21/202101 by JADE DUQUE Justicifation of Admission Dx: Justifications for Admission: Justification of Admission Dx: Yes TIM PICKENS MD Jun 23, 2020 13:11
--- NOTE | 2020-06-23 16:57 | NUR ---
SW following. Reviewed chart and discussed with RN. Pt from home, room air, cardiac diet. No PT/OT needs. SW met with pt who stated no concerns about returning home at discharge. Spouse to transport. No further SW needs identified.
== END 2020-06-23 13:35 | disposition home or self-care (01) | DRG 92 ==
LOC: ER 15:30 → 1 WEST ICU 16:47 → ED HOLD 17:47 → 5 NORTH 19:51
PROVIDERS: ADMIT Family Medicine; ATTEND Family Medicine
DX: G25.3 Myoclonus (principal); F19.939 Other psychoactive substance use, unspecified with withdrawal, unspecified; E78.00 Pure hypercholesterolemia, unspecified; E78.5 Hyperlipidemia, unspecified; F41.9 Anxiety disorder, unspecified; G31.84 Mild cognitive impairment of uncertain or unknown etiology; H91.90 Unspecified hearing loss, unspecified ear; I10 Essential (primary) hypertension; I25.10 Atherosclerotic heart disease of native coronary artery without angina pectoris; I73.9 Peripheral vascular disease, unspecified; M79.7 Fibromyalgia; M81.0 Age-related osteoporosis without current pathological fracture; Z82.49 Family history of ischemic heart disease and other diseases of the circulatory system; Z83.3 Family history of diabetes mellitus; Z86.12 Personal history of poliomyelitis; Z90.710 Acquired absence of both cervix and uterus; Z95.5 Presence of coronary angioplasty implant and graft; G43.909 Migraine, unspecified, not intractable, without status migrainosus; G47.09 Other insomnia; G57.10 Meralgia paresthetica, unspecified lower limb; K57.90 Diverticulosis of intestine, part unspecified, without perforation or abscess without bleeding; M19.90 Unspecified osteoarthritis, unspecified site
CPT/HCPCS: 36415; 70450; 80053; 80307; 81001; 83735; 84443; 85025; 93005; 95816; 96361; 96374; J2060; J7030; 99285-25; G0378